=== PATIENT | female | born 1980 | race Caucasian/White ===

== ENCOUNTER 2021-03-26 17:52 | Emergency (ER) | payer MEDICAID ==
[~2021-03-26] VITALS: Ht 160 cm; Wt 63.6 kg
[~2021-03-26 17:52] MED LIST: ONDA4TAB6 PO
[2021-03-26 18:13] VITALS: BP 131/90
== END 2021-03-26 19:12 | disposition left against medical advice (07) ==
LOC: ER 17:53
DX: R06.02 Shortness of breath (principal); Z53.21 Procedure and treatment not carried out due to patient leaving prior to being seen by health care provider

== ENCOUNTER 2021-07-30 11:36 | Emergency (ER) | payer MEDICAID ==
--- NOTE | 2021-07-30 12:15 | NUR ---
Not in Rap waiting area.
--- NOTE | 2021-07-30 12:32 | NUR ---
Not in RAP waiting area.
--- NOTE | 2021-07-30 12:52 | NUR ---
Not in RAP waiting area.
== END 2021-07-30 13:30 | disposition left against medical advice (07) ==
LOC: ER 11:36
DX: F15.10 Other stimulant abuse, uncomplicated (principal); R50.9 Fever, unspecified; R56.9 Unspecified convulsions; Z88.5 Allergy status to narcotic agent; Z88.1 Allergy status to other antibiotic agents; Z88.8 Allergy status to other drugs, medicaments and biological substances; Z79.899 Other long term (current) drug therapy
CPT/HCPCS: 99283

== ENCOUNTER 2021-11-29 13:41 | Emergency (ER) | payer MEDICAID ==
[~2021-11-29] VITALS: Ht 162.6 cm; Wt 61.8 kg
[2021-11-29 13:49] VITALS: BP 114/84
== END 2021-11-29 18:51 | disposition left against medical advice (07) ==
LOC: ER 13:42
DX: N64.4 Mastodynia (principal); Z53.21 Procedure and treatment not carried out due to patient leaving prior to being seen by health care provider

== ENCOUNTER 2021-11-30 12:49 | Inpatient (IN) | payer MEDICAID ==
[~2021-11-30] VITALS: Ht 160 cm; Wt 61.0 kg
[2021-11-30] MEDS ORDERED: normal saline 1000ML IV soln IV ONE (14:55)
[2021-11-30] MEDS ORDERED: vancomycin/NS 1 GM ADD-VANTAGE 250 ML IV ONE (14:55)
[2021-11-30] MEDS ORDERED: ondansetron/PF 4mg/2ml inj IV ONE (14:55)
[2021-11-30] MEDS ORDERED: morphine 4 MG/ML inj SYRINge IV ONE (14:55)
[2021-11-30 15:21] LABS: BASOPHILS % (AUTO) 0.1 % (0-1); EOSINOPHILS # (AUTO) 0.1 X10'3 (0-0.9); EOSINOPHILS % (AUTO) 0.4 % (0-6); HEMATOCRIT 37.5 % (35.0-45.0); HEMOGLOBIN 11.8 g/dl (12.0-16.0); LYMPHOCYTES # (AUTO) 1.1 X10'3 (1.1-4.8); LYMPHOCYTES % (AUTO) 3.8 % (21-51); MEAN CORPUSCULAR HEMOGLOBIN 25.4 PG (27.0-31.0); MEAN CORPUSCULAR HGB CONC 31.4 g/dL (33.0-36.5); MEAN PLATELET VOLUME 8.2 FL (7.4-10.4); MONOCYTES # (AUTO) 2.1 X10'3 (0-0.9); MONOCYTES % (AUTO) 7.6 % (2-12); NEUTROPHILS # (AUTO) 24.7 X10'3 (1.8-7.7); NEUTROPHILS % (AUTO) 88.1 % (42-75); PLATELET COUNT 509 X10'3 (140-440); RED BLOOD COUNT 4.63 X10'6 (4.20-5.60); RED CELL DISTRIBUTION WIDTH 17.1 % (11.5-14.5)
[2021-11-30 15:24] LABS: WHITE BLOOD COUNT 28.1 X10'3 (4.5-11.0)
[2021-11-30 15:37] LABS: ALANINE AMINOTRANSFERASE 79 U/L (12-78); ALBUMIN/GLOBULIN RATIO 0.5 (1.1-1.5); ALKALINE PHOSPHATASE 195 IU/L (46-116); ANION GAP 8 (8-16); ASPARTATE AMINO TRANSFERASE 40 U/L (10-37); BILIRUBIN,TOTAL 0.4 MG/DL (0.1-1.0); BLOOD UREA NITROGEN 20 MG/DL (7-18); BUN/CREATININE RATIO 16.9 (6.6-38.0); CALCIUM 10.2 MG/DL (8.5-10.1); CHLORIDE 98 MMOL/L (99-107); CREATININE 1.18 MG/DL (0.40-0.90); GLUCOSE 101 MG/DL (70-104); SODIUM 138 MMOL/L (135-145); TOTAL CARBON DIOXIDE 32.3 MMOL/L (24-32); TOTAL PROTEIN 8.5 G/DL (6.4-8.2); eGFR 51 ML/MIN
--- NOTE | 2021-11-30 15:39 | NUR ---
NO EKG AT THIS TIME, PER PA MATA.
[2021-11-30 15:50] LABS: TOTAL CELLS COUNTED 100
[2021-11-30 15:51] LABS: PLATELET ESTIMATE INCREASED
[2021-11-30 15:52] LABS: ANISOCYTOSIS 1+; HYPOCHROMASIA 1+
--- NOTE | 2021-11-30 16:04 | NUR ---
RELIEVING RN FOR BREAK, 1ST LITER NS INFUSING W/O, PT IS BACK FROM CT
[2021-11-30] MEDS ORDERED: potassium Cl 20 mEq SR tablet PO STA (16:15)
[2021-11-30] MEDS ORDERED: LORazepam 2 mg/ml vial IV ONE (16:30)
[2021-11-30] MEDS ORDERED: ketorolac tromethamine 15mg/ml inj. IV ONE (16:30)
[2021-11-30 18:47] LABS: CLARITY,URINE SLIGHTLY CLOUDY (Clear); GLUCOSE, URINE NEGATIVE (Neg); KETONES,URINE TRACE mg/dl (Neg); LEUKOCYTE ESTERASE ,URINE NEGATIVE (Neg); NITRITES, URINE NEGATIVE (Neg); OCCULT BLOOD,URINE NEGATIVE (Neg); PROTEIN,URINE 100 mg/dl (Neg)
[2021-11-30 18:52] LABS: COLOR,URINE DARK YELLOW (Yellow); UA COLLECTION TYPE CLN CATCH MIDSTREAM
[2021-11-30 19:08] LABS: BACTERIA,URINE 1+ /HPF (Neg); SQUAMOUS EPITHELIAL CELL,UR FEW /LPF (FEW); WBC,URINE 0-4 /HPF (0-4)
[2021-11-30 19:09] LABS: HYALINE CASTS 0-3 /LPF (NEGATIVE)
[2021-11-30 19:11] LABS: RBC,URINE 20-50 /HPF (0-2)
[2021-11-30] MEDS ORDERED: magnesium Cl slow-release 64mg tablet PO PRN (20:00)
[2021-11-30] MEDS ORDERED: acetaminophen 325mg tablet PO PRN (20:00)
[2021-11-30] MEDS ORDERED: magnesium 4gm in 100ml NS 100 ML IV PRN (20:00)
[2021-11-30] MEDS ORDERED: ondansetron 4mg rapidly disintigrating tab PO PRN (20:00)
[2021-11-30] MEDS ORDERED: diphenhydrAMINE 50 mg/ml inj IV PRN (20:00)
[2021-11-30] MEDS: docusate sod 100mg capsule PO SCH (20:00)
[2021-11-30] MEDS ORDERED: bisacodyl 10mg suppository rectal RC PRN (20:00)
[2021-11-30] MEDS: K and/or MAG REPLACEMENT MC SCH (20:00)
[2021-11-30] MEDS ORDERED: mag hydrox/Alum hydrox/simeth 30ml oral suspension PO PRN (20:00)
[2021-11-30] MEDS ORDERED: acetaminophen 650mg rectal suppository RC PRN (20:00)
[2021-11-30] MEDS ORDERED: magnesium 2GM in 50ml NS 50 ML IV PRN (20:00)
[2021-11-30] MEDS ORDERED: POTASSIUM BICARB 20meq eff tab 20 MEQ TABLET.EFF PO PRN ×2 (20:00)
[2021-11-30] MEDS ORDERED: potassium CL 10mEq/100ml bag 100 ML IV PRN (20:00)
[2021-11-30] MEDS ORDERED: magnesium hydroxide 30ml (MOM) UD suspension PO PRN (20:00)
[2021-11-30] MEDS: vancomycin/NS 1 GM ADD-VANTAGE 250 ML IV SCH (20:50)
[2021-11-30] MEDS: potassium Cl 20mEq in NS 1,000 ML IV SCH (20:50)
[2021-11-30] MEDS: ondansetron/PF 4mg/2ml inj IV PRN (20:51)
[2021-11-30 20:58] LABS: HEMOGLOBIN A1C 6.1 % (4.5-6.2)
[2021-11-30 20:59] LABS: URINE AMPHETAMINE SCREEN POSITIVE (Neg); URINE BARBITUATE SCREEN NEGATIVE (Neg); URINE BENZODIAZEPINES SCREEN NEGATIVE (Neg); URINE CANNABINOID SCREEN POSITIVE (Neg); URINE COCAINE SCREEN NEGATIVE (Neg); URINE METHADONE SCREEN NEGATIVE (Neg); URINE OPIATE SCREEN POSITIVE (Neg); URINE PHENCYCLIDINE SCREEN NEGATIVE (Neg)
--- NOTE | 2021-11-30 21:00 | NUR ---
Maria Del Carmen CALHOUN at bedside talking with patient.
[2021-11-30 21:11] LABS: APTT 32 SECONDS (22-32); CREATINE KINASE 24 U/L (26-192); MAGNESIUM 1.5 MG/DL (1.5-2.4); PHOSPHORUS 3.6 MG/DL (2.3-4.5); POTASSIUM 3.8 MMOL/L (3.5-5.1)
[2021-11-30] MEDS: HYDROmorphone inj. 0.5 MG/0.5 ML DISP.SYRIN IV PRN (21:14)
[2021-12-01] MEDS: piperacillin/tazo 4.5gm/100ml 100 ML IV SCH ×3 (00:26→16:17)
[2021-12-01 01:44] LABS: BASOPHILS # (AUTO) 0.1 X10'3 (0-0.2); BASOPHILS % (AUTO) 0.2 % (0-1); EOSINOPHILS # (AUTO) 0.1 X10'3 (0-0.9); EOSINOPHILS % (AUTO) 0.3 % (0-6); HEMATOCRIT 31.9 % (35.0-45.0); HEMOGLOBIN 10.1 g/dl (12.0-16.0); LYMPHOCYTES # (AUTO) 1.1 X10'3 (1.1-4.8); LYMPHOCYTES % (AUTO) 3.9 % (21-51); MEAN CORPUSCULAR HEMOGLOBIN 25.9 PG (27.0-31.0); MEAN CORPUSCULAR HGB CONC 31.7 g/dL (33.0-36.5); MEAN CORPUSCULAR VOLUME 81.6 FL (78-98); MEAN PLATELET VOLUME 8.2 FL (7.4-10.4); MONOCYTES # (AUTO) 2.2 X10'3 (0-0.9); NEUTROPHILS % (AUTO) 87.6 % (42-75); PLATELET COUNT 402 X10'3 (140-440); RED BLOOD COUNT 3.91 X10'6 (4.20-5.60); RED CELL DISTRIBUTION WIDTH 17.4 % (11.5-14.5)
[2021-12-01 01:55] LABS: ALANINE AMINOTRANSFERASE 61 U/L (12-78); ALBUMIN/GLOBULIN RATIO 0.5 (1.1-1.5); ALKALINE PHOSPHATASE 201 IU/L (46-116); ANION GAP 8 (8-16); ASPARTATE AMINO TRANSFERASE 28 U/L (10-37); BILIRUBIN,TOTAL 0.4 MG/DL (0.1-1.0); BLOOD UREA NITROGEN 11 MG/DL (7-18); BUN/CREATININE RATIO 13.6 (6.6-38.0); CALCIUM 8.2 MG/DL (8.5-10.1); CHLORIDE 104 MMOL/L (99-107); CREATININE 0.81 MG/DL (0.40-0.90); GLUCOSE 104 MG/DL (70-104); MAGNESIUM 1.2 MG/DL (1.5-2.4); POTASSIUM 4.3 MMOL/L (3.5-5.1); SODIUM 135 MMOL/L (135-145); TOTAL CARBON DIOXIDE 23.3 MMOL/L (24-32); TOTAL PROTEIN 6.2 G/DL (6.4-8.2); WHITE BLOOD COUNT 27.4 X10'3 (4.5-11.0); eGFR 78 ML/MIN
[2021-12-01] MEDS ORDERED: TETanus/Pertussis (Acell)/Diphther VAC/PF (Tdap-Adult) 0.5ml syringe IMVAC ONE (02:30)
[2021-12-01] MEDS: HYDROmorphone inj. 0.5 MG/0.5 ML DISP.SYRIN IV PRN ×2 (04:36→20:20)
[2021-12-01] MEDS: potassium Cl 20mEq in NS 1,000 ML IV SCH (06:59)
--- NOTE | 2021-12-01 07:32 | NUR ---
primary nurse went to [facility] with other patient ,newswriter is covering for the pt untill primary nurse comes back.
[2021-12-01] MEDS: docusate sod 100mg capsule PO SCH ×2 (08:00→20:13)
[2021-12-01] MEDS: K and/or MAG REPLACEMENT MC SCH ×2 (08:00→20:00)
[2021-12-01] MEDS: vancomycin/NS 1 GM ADD-VANTAGE 250 ML IV SCH ×2 (08:34→20:43)
--- NOTE | 2021-12-01 11:13 | NUR ---
Spoke with yandel regarding patient NPO diet order. OR does not have her on the surgery list, patient to recieve regular diet per Dr Zaidi.
[2021-12-01] MEDS: ondansetron/PF 4mg/2ml inj IV PRN (11:20)
[2021-12-01] MEDS: ketorolac trometh. 30mg/ml inj. IV PRN (11:20)
--- NOTE | 2021-12-01 16:06 | NUR ---
spoke to dr humphries in person and informed the md that pt is reciving iv potassium 20 meq with n.s in 1l and pt am k+ was 4.3 .is it okay to d/c the drip. dr humphries agrees to d/c the iv drip.
--- NOTE | 2021-12-01 18:50 | NUR ---
Patient in room ORTHO 4006. I have received report from Heather LANGE (ER) and had the opportunity to ask questions and assume patient care. Addendum: 12/01/21 at 1908 by Liz Stevens RN Amended: Links added.
[2021-12-01 19:15] VITALS: BP 150/97
[2021-12-01 22:00] VITALS: BP 152/92
[2021-12-02] MEDS: piperacillin/tazo 4.5gm/100ml 100 ML IV SCH ×4 (00:01→23:33)
[2021-12-02] MEDS: ketorolac trometh. 30mg/ml inj. IV PRN ×3 (00:01→16:58)
[2021-12-02] MEDS: HYDROmorphone inj. 0.5 MG/0.5 ML DISP.SYRIN IV PRN ×4 (04:22→21:54)
[2021-12-02 06:00] VITALS: BP 117/85
--- NOTE | 2021-12-02 06:20 | NUR ---
Problems reprioritized. Patient report given, questions answered & plan of care reviewed with Lorena LANGE. Addendum: 12/02/21 at 0655 by Liz Stevens RN Amended: Links added.
--- NOTE | 2021-12-02 06:52 | NUR ---
Patient in room ORTHO 4023. I have received report from Liz LANGE and had the opportunity to ask questions and assume patient care.
[2021-12-02] MEDS ORDERED: VANCOMYCIN LEVEL IV ONE (07:30)
[2021-12-02] MEDS: K and/or MAG REPLACEMENT MC SCH ×2 (07:41→20:00)
[2021-12-02 08:21] LABS: BASOPHILS # (AUTO) 0.1 X10'3 (0-0.2); BASOPHILS % (AUTO) 0.4 % (0-1); EOSINOPHILS # (AUTO) 0.3 X10'3 (0-0.9); HEMATOCRIT 30.2 % (35.0-45.0); HEMOGLOBIN 9.6 g/dl (12.0-16.0); LYMPHOCYTES # (AUTO) 1.4 X10'3 (1.1-4.8); LYMPHOCYTES % (AUTO) 5.8 % (21-51); MEAN CORPUSCULAR HEMOGLOBIN 25.9 PG (27.0-31.0); MEAN CORPUSCULAR HGB CONC 31.8 g/dL (33.0-36.5); MEAN CORPUSCULAR VOLUME 81.5 FL (78-98); MEAN PLATELET VOLUME 7.9 FL (7.4-10.4); MONOCYTES # (AUTO) 1.7 X10'3 (0-0.9); MONOCYTES % (AUTO) 6.6 % (2-12); NEUTROPHILS # (AUTO) 21.7 X10'3 (1.8-7.7); NEUTROPHILS % (AUTO) 86.2 % (42-75); PLATELET COUNT 449 X10'3 (140-440); RED BLOOD COUNT 3.71 X10'6 (4.20-5.60); RED CELL DISTRIBUTION WIDTH 17.8 % (11.5-14.5)
[2021-12-02 08:35] LABS: ALANINE AMINOTRANSFERASE 70 U/L (12-78); ALBUMIN 1.8 G/DL (3.4-5.0); ALBUMIN/GLOBULIN RATIO 0.4 (1.1-1.5); ALKALINE PHOSPHATASE 204 IU/L (46-116); ANION GAP 9 (8-16); ASPARTATE AMINO TRANSFERASE 36 U/L (10-37); BILIRUBIN,TOTAL 0.2 MG/DL (0.1-1.0); BLOOD UREA NITROGEN 14 MG/DL (7-18); BUN/CREATININE RATIO 19.2 (6.6-38.0); CALCIUM 8.4 MG/DL (8.5-10.1); CHLORIDE 102 MMOL/L (99-107); CREATININE 0.73 MG/DL (0.40-0.90); GLUCOSE 95 MG/DL (70-104); MAGNESIUM 1.6 MG/DL (1.5-2.4); POTASSIUM 3.8 MMOL/L (3.5-5.1); SODIUM 138 MMOL/L (135-145); TOTAL CARBON DIOXIDE 27.4 MMOL/L (24-32); VANCOMYCIN,TROUGH 7.1 UG/ML (6.0-14.0); eGFR 88 ML/MIN
[2021-12-02 08:37] LABS: WHITE BLOOD COUNT 25.2 X10'3 (4.5-11.0)
[2021-12-02] MEDS: vancomycin/NS 1 GM ADD-VANTAGE 250 ML IV SCH (08:46)
[2021-12-02] MEDS: docusate sod 100mg capsule PO SCH ×2 (08:46→20:00)
[2021-12-02 09:17] LABS: TOTAL CELLS COUNTED 100
[2021-12-02 09:18] LABS: ANISOCYTOSIS 1+; PLATELET ESTIMATE INCREASED
[2021-12-02 10:00] VITALS: BP 136/99
[2021-12-02 14:00] VITALS: BP 137/88
[2021-12-02 18:00] VITALS: BP 137/99
--- NOTE | 2021-12-02 18:15 | NUR ---
Patient in room ORTHO 4011. I have received report from Indy LANGE and had the opportunity to ask questions and assume patient care. Addendum: 12/02/21 at 1940 by Liz Stevens RN Amended: Links added.
[2021-12-02] MEDS: VANCOmycin 1250MG/NS 250ml Bag 250 ML IV SCH (21:48)
[2021-12-03] MEDS: temazepam 15mg capsule PO PRN ×2 (01:27→22:09)
[2021-12-03] MEDS: ketorolac trometh. 30mg/ml inj. IV PRN ×3 (01:27→20:06)
--- NOTE | 2021-12-03 05:00 | NUR ---
Pt. afebrile this shift. Changed pt's drsg to left breast abscess due to soilage (purulant drainage noted to drsg)- pt. medicated for pain this shift. Bed in low position and call light within reach. Addendum: 12/03/21 at 0710 by Liz Stevens RN Amended: Links added.
[2021-12-03 05:30] VITALS: BP 152/97
--- NOTE | 2021-12-03 06:50 | NUR ---
jose reprioritized. Patient report given, questions answered & plan of care reviewed with Beti LANGE. Addendum: 12/03/21 at 0706 by Liz Stevens RN Amended: Links added.
--- NOTE | 2021-12-03 07:10 | NUR ---
Patient in room ORTHO 4023. I have received report from ANISA Hill and had the opportunity to ask questions and assume patient care.
[2021-12-03 07:16] LABS: ALANINE AMINOTRANSFERASE 50 U/L (12-78); ALBUMIN 1.7 G/DL (3.4-5.0); ALBUMIN/GLOBULIN RATIO 0.4 (1.1-1.5); ALKALINE PHOSPHATASE 201 IU/L (46-116); ANION GAP 7 (8-16); ASPARTATE AMINO TRANSFERASE 18 U/L (10-37); BILIRUBIN,TOTAL 0.2 MG/DL (0.1-1.0); BLOOD UREA NITROGEN 15 MG/DL (7-18); CALCIUM 8.4 MG/DL (8.5-10.1); CHLORIDE 104 MMOL/L (99-107); CREATININE 0.79 MG/DL (0.40-0.90); GLUCOSE 84 MG/DL (70-104); MAGNESIUM 1.8 MG/DL (1.5-2.4); POTASSIUM 4.3 MMOL/L (3.5-5.1); SODIUM 139 MMOL/L (135-145); TOTAL CARBON DIOXIDE 28.2 MMOL/L (24-32); TOTAL PROTEIN 5.6 G/DL (6.4-8.2); eGFR 81 ML/MIN
[2021-12-03] MEDS: HYDROmorphone inj. 0.5 MG/0.5 ML DISP.SYRIN IV PRN (07:19)
[2021-12-03 07:29] LABS: BASOPHILS # (AUTO) 0.1 X10'3 (0-0.2); BASOPHILS % (AUTO) 0.5 % (0-1); EOSINOPHILS # (AUTO) 0.4 X10'3 (0-0.9); EOSINOPHILS % (AUTO) 2.6 % (0-6); HEMATOCRIT 30.5 % (35.0-45.0); HEMOGLOBIN 9.8 g/dl (12.0-16.0); LYMPHOCYTES # (AUTO) 1.6 X10'3 (1.1-4.8); LYMPHOCYTES % (AUTO) 10.6 % (21-51); MEAN CORPUSCULAR HEMOGLOBIN 26.2 PG (27.0-31.0); MEAN CORPUSCULAR HGB CONC 32.1 g/dL (33.0-36.5); MEAN CORPUSCULAR VOLUME 81.5 FL (78-98); MEAN PLATELET VOLUME 8.4 FL (7.4-10.4); MONOCYTES % (AUTO) 6.4 % (2-12); NEUTROPHILS # (AUTO) 12.2 X10'3 (1.8-7.7); NEUTROPHILS % (AUTO) 79.9 % (42-75); PLATELET COUNT 500 X10'3 (140-440); RED BLOOD COUNT 3.74 X10'6 (4.20-5.60); RED CELL DISTRIBUTION WIDTH 17.7 % (11.5-14.5); WHITE BLOOD COUNT 15.3 X10'3 (4.5-11.0)
[2021-12-03] MEDS: docusate sod 100mg capsule PO SCH ×3 (08:00→20:08)
[2021-12-03] MEDS: K and/or MAG REPLACEMENT MC SCH ×2 (08:00→20:00)
[2021-12-03] MEDS: VANCOmycin 1250MG/NS 250ml Bag 250 ML IV SCH ×2 (08:55→21:52)
[2021-12-03 09:31] LABS: TOTAL CELLS COUNTED 100
[2021-12-03 09:34] LABS: ANISOCYTOSIS 1+; HYPOCHROMASIA 1+; PLATELET ESTIMATE INCREASED
[2021-12-03 09:35] LABS: ACANTHOCYTES FEW; BURR CELLS FEW; TARGET CELLS FEW; TEAR DROP CELLS FEW
[2021-12-03 10:00] VITALS: BP 138/100
[2021-12-03] MEDS: piperacillin/tazo 4.5gm/100ml 100 ML IV SCH ×2 (11:16→16:24)
[2021-12-03] MEDS: HYDROmorphone 1 mg/ml syringe IV PRN ×3 (12:08→22:09)
--- NOTE | 2021-12-03 18:00 | NUR ---
pt in the shower unable to get vitals at the time. Addendum: 12/04/21 at 0126 by Jenna Lopez RN Amended: Links added.
--- NOTE | 2021-12-03 18:50 | NUR ---
Problems reprioritized. Patient report given, questions answered & plan of care reviewed with ANISA West.
--- NOTE | 2021-12-03 18:57 | NUR ---
Patient in room ORTHO 4023. I have received report from ANIAS VILLAGRAN and had the opportunity to ask questions and assume patient care. Addendum: 12/03/21 at 1857 by Jenna Lopez RN Amended: Links added.
[2021-12-03 22:00] VITALS: BP 143/92
--- NOTE | 2021-12-03 22:20 | NUR ---
pt left breast under axilla with large white absess and one open and draining pussy white matter and dressing saturated and removed and redressed with telfa dressings x2 and 4x4 guaze and abd pad over it. held in place with paper tape and stockinette dressing. pt claims she had a premie baby who is at [facility]. said it's with current boyfriend and that this is baby number 5 and had 4 others with another man who is . said her Mom is currently trying to get those kids.
[2021-12-04] MEDS: piperacillin/tazo 4.5gm/100ml 100 ML IV SCH ×3 (00:41→23:53)
--- NOTE | 2021-12-04 01:23 | NUR ---
pt awokle itching feet and c/o it. medicated with iv benadryl 25mg for this.
[2021-12-04 02:09] VITALS: BP 120/84
[2021-12-04] MEDS: HYDROmorphone 1 mg/ml syringe IV PRN ×5 (03:28→23:53)
--- NOTE | 2021-12-04 03:32 | NUR ---
awokle complaint of pain medicated with iv diladid for this
[2021-12-04] MEDS: ketorolac trometh. 30mg/ml inj. IV PRN ×2 (05:16→22:12)
--- NOTE | 2021-12-04 05:18 | NUR ---
medicated for oscar to left breat and then up to brp toradol given for the pain
--- NOTE | 2021-12-04 05:58 | NUR ---
Problems reprioritized. Patient report given, questions answered & plan of care reviewed with ANISA CANSECO. Addendum: 12/04/21 at 0558 by Jenna Lopez RN Amended: Links added.
--- NOTE | 2021-12-04 06:10 | NUR ---
Patient in room ORTHO 4023. I have received report from Jenna LANGE and had the opportunity to ask questions and assume patient care.
[2021-12-04 06:59] VITALS: BP 134/84
[2021-12-04] MEDS: VANCOmycin 1250MG/NS 250ml Bag 250 ML IV SCH ×2 (07:26→20:02)
[2021-12-04] MEDS ORDERED: VANCOMYCIN LEVEL IV ONE ×2 (07:30→19:30)
[2021-12-04 07:49] LABS: BASOPHILS # (AUTO) 0.1 X10'3 (0-0.2); BASOPHILS % (AUTO) 0.8 % (0-1); EOSINOPHILS # (AUTO) 0.6 X10'3 (0-0.9); EOSINOPHILS % (AUTO) 4.6 % (0-6); HEMATOCRIT 33.1 % (35.0-45.0); HEMOGLOBIN 10.4 g/dl (12.0-16.0); LYMPHOCYTES % (AUTO) 16.4 % (21-51); MEAN CORPUSCULAR HEMOGLOBIN 25.2 PG (27.0-31.0); MEAN CORPUSCULAR HGB CONC 31.4 g/dL (33.0-36.5); MEAN CORPUSCULAR VOLUME 80.5 FL (78-98); MEAN PLATELET VOLUME 7.7 FL (7.4-10.4); MONOCYTES # (AUTO) 1.1 X10'3 (0-0.9); MONOCYTES % (AUTO) 9.1 % (2-12); NEUTROPHILS # (AUTO) 8.6 X10'3 (1.8-7.7); NEUTROPHILS % (AUTO) 69.1 % (42-75); PLATELET COUNT 567 X10'3 (140-440); RED BLOOD COUNT 4.11 X10'6 (4.20-5.60); WHITE BLOOD COUNT 12.4 X10'3 (4.5-11.0)
[2021-12-04 08:09] LABS: ALANINE AMINOTRANSFERASE 42 U/L (12-78); ALBUMIN 1.9 G/DL (3.4-5.0); ALBUMIN/GLOBULIN RATIO 0.5 (1.1-1.5); ALKALINE PHOSPHATASE 151 IU/L (46-116); ANION GAP 5 (8-16); ASPARTATE AMINO TRANSFERASE 12 U/L (10-37); BILIRUBIN,TOTAL 0.2 MG/DL (0.1-1.0); BLOOD UREA NITROGEN 15 MG/DL (7-18); BUN/CREATININE RATIO 17.4 (6.6-38.0); CALCIUM 8.5 MG/DL (8.5-10.1); CHLORIDE 105 MMOL/L (99-107); CREATININE 0.86 MG/DL (0.40-0.90); GLUCOSE 93 MG/DL (70-104); MAGNESIUM 1.8 MG/DL (1.5-2.4); POTASSIUM 4.7 MMOL/L (3.5-5.1); SODIUM 138 MMOL/L (135-145); TOTAL CARBON DIOXIDE 28.2 MMOL/L (24-32); eGFR 73 ML/MIN
--- NOTE | 2021-12-04 08:15 | NUR ---
vanco trough 31.3 reported to pharmacy.
[2021-12-04 08:59] LABS: ANISOCYTOSIS 1+; HYPOCHROMASIA 1+; PLATELET ESTIMATE INCREASED; TARGET CELLS FEW; TOTAL CELLS COUNTED 100
[2021-12-04 09:00] LABS: LARGE PLATELETS FEW
[2021-12-04] MEDS: docusate sod 100mg capsule PO SCH ×2 (09:00→20:00)
[2021-12-04] MEDS: K and/or MAG REPLACEMENT MC SCH ×2 (09:00→20:00)
[2021-12-04 10:00] VITALS: BP 143/93
--- NOTE | 2021-12-04 12:15 | NUR ---
WOC RN here assessing wound and changing dressing. Wound with purulent drainage
--- NOTE | 2021-12-04 13:00 | NUR ---
PICC RN here. DC'd Rt antecubital and left wrist IV's. Placed extended cath to Rt upper arm.
[2021-12-04 15:08] VITALS: BP 136/84
--- NOTE | 2021-12-04 17:20 | NUR ---
Out in [place] asking for pain meds. States is hungry and anxious to get surgery over with.
--- NOTE | 2021-12-04 17:30 | NUR ---
returned to room to let pt know pain meds are not due yet. Found pt sleeping in bed.
[2021-12-04 18:20] VITALS: BP 150/92
--- NOTE | 2021-12-04 18:20 | NUR ---
Problems reprioritized. Patient report given, questions answered & plan of care reviewed with Naima LANGE.
[2021-12-04 22:00] VITALS: BP 140/70
[2021-12-05] VITALS (14 sets, daily range): BP systolic 136–184; BP diastolic 78–142
[2021-12-05] MEDS: piperacillin/tazo 4.5gm/100ml 100 ML IV SCH ×3 (00:44→16:55)
[2021-12-05] MEDS: HYDROmorphone 1 mg/ml syringe IV PRN ×3 (04:54→20:36)
[2021-12-05 05:50] LABS: BASOPHILS # (AUTO) 0.1 X10'3 (0-0.2); BASOPHILS % (AUTO) 0.8 % (0-1); EOSINOPHILS # (AUTO) 0.6 X10'3 (0-0.9); EOSINOPHILS % (AUTO) 4.3 % (0-6); HEMOGLOBIN 11.5 g/dl (12.0-16.0); LYMPHOCYTES # (AUTO) 2.7 X10'3 (1.1-4.8); LYMPHOCYTES % (AUTO) 18.6 % (21-51); MEAN CORPUSCULAR HEMOGLOBIN 25.8 PG (27.0-31.0); MEAN CORPUSCULAR HGB CONC 31.1 g/dL (33.0-36.5); MEAN PLATELET VOLUME 7.3 FL (7.4-10.4); MONOCYTES # (AUTO) 1.1 X10'3 (0-0.9); MONOCYTES % (AUTO) 7.6 % (2-12); NEUTROPHILS % (AUTO) 68.7 % (42-75); PLATELET COUNT 564 X10'3 (140-440); RED BLOOD COUNT 4.46 X10'6 (4.20-5.60); RED CELL DISTRIBUTION WIDTH 18.3 % (11.5-14.5); WHITE BLOOD COUNT 14.6 X10'3 (4.5-11.0)
[2021-12-05 06:06] LABS: ALANINE AMINOTRANSFERASE 37 U/L (12-78); ALBUMIN 2.3 G/DL (3.4-5.0); ALBUMIN/GLOBULIN RATIO 0.5 (1.1-1.5); ALKALINE PHOSPHATASE 157 IU/L (46-116); ANION GAP 10 (8-16); ASPARTATE AMINO TRANSFERASE 14 U/L (10-37); BILIRUBIN,TOTAL 0.2 MG/DL (0.1-1.0); BLOOD UREA NITROGEN 17 MG/DL (7-18); BUN/CREATININE RATIO 14.9 (6.6-38.0); CALCIUM 9.2 MG/DL (8.5-10.1); CHLORIDE 100 MMOL/L (99-107); CREATININE 1.14 MG/DL (0.40-0.90); GLUCOSE 87 MG/DL (70-104); POTASSIUM 4.7 MMOL/L (3.5-5.1); SODIUM 137 MMOL/L (135-145); TOTAL CARBON DIOXIDE 26.6 MMOL/L (24-32); TOTAL PROTEIN 6.9 G/DL (6.4-8.2); eGFR 53 ML/MIN
[2021-12-05 06:33] LABS: ANISOCYTOSIS 2+; PLATELET ESTIMATE INCREASED; TOTAL CELLS COUNTED 100
[2021-12-05] MEDS: K and/or MAG REPLACEMENT MC SCH ×2 (08:00→20:00)
[2021-12-05] MEDS: docusate sod 100mg capsule PO SCH ×2 (08:27→20:00)
[2021-12-05] MEDS: ketorolac trometh. 30mg/ml inj. IV PRN ×2 (08:27→15:16)
--- NOTE | 2021-12-05 09:01 | NUR ---
Initial: Pt admitted w/ L breast cellulitis, sepsis, hypokalemia and is noted to be ~4months per EMR. Pt is planned to go for I&D of chest abscess per MD note. Currently NPO for OR though previously on Regular diet w/ 100% intake of meals meeting needs. LBM 12/02 receiving routine colace. No nutrition intervention implemented at this time, will continue to monitor. Recs: 1. Continue Regular diet as tolerated 2. Bowel care per rx 3. Scaled wts this admit Addendum: 12/05/21 at [address] Amended: Links added.
[2021-12-05] MEDS: VANCOmycin 1250MG/NS 250ml Bag 250 ML IV SCH ×2 (10:21→20:36)
--- NOTE | 2021-12-05 10:45 | NUR ---
Patient asked me if she can go for a walk, I told her that she can but just around the 4th floor. I reminded her about the hospital policy of no smoking within the hospital and that the moment she leave the building that would be considered against medical advice and that it is not safe to do so. She said she won't leave. Reminded patient about NPO status as she is expected to have surgery today.
--- NOTE | 2021-12-05 12:01 | NUR ---
Met with patient in regards to substance use and to see if patient was interested in resources for treatment options. Patient would like resources for both inpatient and outpatient rehab. I gave patient a list of resources and my card to call me with any questions.
[2021-12-05] MEDS ORDERED: bacitracin 15gm ointment TP ONE (12:04)
--- NOTE | 2021-12-05 13:35 | NUR ---
Report given to Recovery Room Nurse. Endorsed to the nurse to make sure we get the breast wound culture done in the OR as it is not done yet.
[2021-12-05] MEDS ORDERED: morphine 2 MG/ML inj. syringe IV PRN (14:10)
[2021-12-05] MEDS ORDERED: hydrALAZINE 20mg/ml inj. IV PRN (14:10)
[2021-12-05] MEDS ORDERED: ondansetron/PF 4mg/2ml inj IV PRN (14:10)
[2021-12-05] MEDS ORDERED: labetalol 20mg/4ml (5mg/ml) syringe IV PRN (14:10)
[2021-12-05] MEDS ORDERED: ringers solution, lacted 1,000 ML IV SCH (14:10)
[2021-12-05] MEDS ORDERED: fentaNYL/PF 50MCG/1 ML 2ML syringe IV PRN (14:10)
[2021-12-05] MEDS ORDERED: dexamethasone sod phosphate 10mg/ml inj ONE (14:12)
[2021-12-05] MEDS ORDERED: sevoflurane 250ml liquid IH ONE (14:12)
[2021-12-05] MEDS ORDERED: LIDOcaine 1% (10mg/ml)w/preservative inj. 20ml MDV ONE (14:12)
[2021-12-05] MEDS ORDERED: fentaNYL/PF 50MCG/1 ML 2ML syringe ONE (14:31)
[2021-12-05] MEDS ORDERED: ondansetron/PF 4mg/2ml inj ONE (14:33)
[2021-12-05] MEDS ORDERED: propofol inj 20 ML IV ONE (14:34)
[2021-12-05] MEDS: morphine 4 MG/ML inj SYRINge IV PRN ×2 (15:25→15:47)
[2021-12-05] MEDS: fentaNYL/PF 50MCG/1 ML 2ML syringe IV PRN ×2 (15:35→15:43)
[2021-12-05] MEDS: acetaminophen 1,000mg/100ml IV 100 ML IV SCH (16:05)
--- NOTE | 2021-12-05 16:12 | NUR ---
Still in the OR at this time
[2021-12-05] MEDS ORDERED: HYDROmorphone inj. 0.5 MG/0.5 ML DISP.SYRIN ONE (16:14)
[2021-12-05] MEDS ORDERED: HYDROmorphone/PF 0.2 MG/ML SYRINGE IV PRN ×2 (16:15)
--- NOTE | 2021-12-05 16:33 | NUR ---
PATIENT HAS MET ALL CRITERIA FOR TRANSFER TO THE ORTHO FLOOR. VSS. DRESSINGS INTACT. BED LOW, CALL LIGHT PRESENT AND 2 RAILS UP. RN PRESENT TO ACCEPT CARE OF PATIENT AND REPORT HAS BEEN CALLED. ALL QUESTIONS ANSWERED TO ACCEPTING RN. Addendum: 12/05/21 at 1643 by Parviz Styles RN Amended: Links added.
[2021-12-05] MEDS: temazepam 15mg capsule PO PRN (22:56)
[2021-12-06] MEDS: HYDROmorphone 1 mg/ml syringe IV PRN ×5 (01:01→21:44)
[2021-12-06] MEDS: piperacillin/tazo 4.5gm/100ml 100 ML IV SCH ×3 (01:10→17:33)
[2021-12-06 02:00] VITALS: BP 140/88
[2021-12-06 07:00] VITALS: BP 118/80
[2021-12-06] MEDS: K and/or MAG REPLACEMENT MC SCH ×2 (08:00→20:00)
[2021-12-06] MEDS: docusate sod 100mg capsule PO SCH ×2 (08:00→20:00)
[2021-12-06] MEDS: VANCOmycin 1250MG/NS 250ml Bag 250 ML IV SCH ×2 (08:24→21:44)
[2021-12-06 10:00] VITALS: BP 105/62
--- NOTE | 2021-12-06 15:30 | NUR ---
Spoke with Dr Coffman for post op wound orders which were obtained. Addendum: 12/07/21 at 1303 by Aleksandra Lucero RN Amended: Links added.
[2021-12-06] MEDS: acetaminophen 1,000mg/100ml IV 100 ML IV SCH (16:05)
--- NOTE | 2021-12-06 17:00 | NUR ---
PER PHARMACIST OK TO HANG 1600 ZOSYN AT 1730 FOUR HOURS APART FROM 1215 DOSE HUNG
[2021-12-06 18:00] VITALS: BP 139/86
--- NOTE | 2021-12-06 18:04 | NUR ---
Problems reprioritized. Patient report given, questions answered & plan of care reviewed with TARA LANGE.
[2021-12-06 22:00] VITALS: BP 141/90
[2021-12-07] MEDS: piperacillin/tazo 4.5gm/100ml 100 ML IV SCH ×3 (00:05→16:43)
[2021-12-07] MEDS: HYDROmorphone 1 mg/ml syringe IV PRN ×3 (02:25→11:21)
[2021-12-07] MEDS: diphenhydrAMINE 25mg capsule PO PRN ×2 (05:21→16:53)
[2021-12-07 05:57] VITALS: BP 151/83
--- NOTE | 2021-12-07 06:15 | NUR ---
Received report from Loli LANGE
[2021-12-07 06:35] LABS: BASOPHILS # (AUTO) 0.2 X10'3 (0-0.2); EOSINOPHILS # (AUTO) 0.5 X10'3 (0-0.9); EOSINOPHILS % (AUTO) 3.2 % (0-6); HEMATOCRIT 32.2 % (35.0-45.0); RED BLOOD COUNT 3.99 X10'6 (4.20-5.60)
[2021-12-07 06:39] LABS: BASOPHILS % (AUTO) 1.4 % (0-1); HEMOGLOBIN 10.6 g/dl (12.0-16.0); LYMPHOCYTES # (AUTO) 2.5 X10'3 (1.1-4.8); LYMPHOCYTES % (AUTO) 17.1 % (21-51); MEAN CORPUSCULAR HEMOGLOBIN 26.5 PG (27.0-31.0); MEAN CORPUSCULAR HGB CONC 32.9 g/dL (33.0-36.5); MEAN CORPUSCULAR VOLUME 80.6 FL (78-98); MEAN PLATELET VOLUME 7.2 FL (7.4-10.4); MONOCYTES # (AUTO) 1.2 X10'3 (0-0.9); MONOCYTES % (AUTO) 8.2 % (2-12); NEUTROPHILS # (AUTO) 10.2 X10'3 (1.8-7.7); NEUTROPHILS % (AUTO) 70.1 % (42-75); PLATELET COUNT 608 X10'3 (140-440); WHITE BLOOD COUNT 14.5 X10'3 (4.5-11.0)
[2021-12-07 07:04] LABS: ALANINE AMINOTRANSFERASE 30 U/L (12-78); ALBUMIN 2.6 G/DL (3.4-5.0); ALBUMIN/GLOBULIN RATIO 0.6 (1.1-1.5); ALKALINE PHOSPHATASE 128 IU/L (46-116); ANION GAP 7 (8-16); ASPARTATE AMINO TRANSFERASE 15 U/L (10-37); BILIRUBIN,TOTAL 0.2 MG/DL (0.1-1.0); BLOOD UREA NITROGEN 16 MG/DL (7-18); BUN/CREATININE RATIO 13.9 (6.6-38.0); CHLORIDE 102 MMOL/L (99-107); CREATININE 1.15 MG/DL (0.40-0.90); GLUCOSE 88 MG/DL (70-104); POTASSIUM 4.3 MMOL/L (3.5-5.1); SODIUM 138 MMOL/L (135-145); TOTAL CARBON DIOXIDE 28.9 MMOL/L (24-32); TOTAL PROTEIN 6.9 G/DL (6.4-8.2); eGFR 52 ML/MIN
[2021-12-07] MEDS: VANCOmycin 1250MG/NS 250ml Bag 250 ML IV SCH (07:24)
[2021-12-07] MEDS: K and/or MAG REPLACEMENT MC SCH ×2 (08:00→20:00)
[2021-12-07] MEDS: docusate sod 100mg capsule PO SCH ×2 (08:00→20:00)
[2021-12-07 08:11] LABS: ANISOCYTOSIS 1+; HYPOCHROMASIA 1+; PLATELET ESTIMATE INCREASED; TOTAL CELLS COUNTED 100
[2021-12-07 10:00] VITALS: BP 143/93
--- NOTE | 2021-12-07 12:07 | NUR ---
Patient in room ORTHO 4020. I have received report from ANISA Tomlin and had the opportunity to ask questions and assume patient care.
--- NOTE | 2021-12-07 13:00 | NUR ---
I have reviewed ANISA Tomlin physical assessment and am in agreement Addendum: 12/07/21 at 1905 by Loli Domínguez RN Amended: Links added.
[2021-12-07 14:00] VITALS: BP 131/96
[2021-12-07] MEDS: traMADol 50MG tablet PO PRN ×2 (15:49→22:28)
--- NOTE | 2021-12-07 17:10 | NUR ---
dressing changed per written orders
--- NOTE | 2021-12-07 18:52 | NUR ---
Problems reprioritized. Patient report given, questions answered & plan of care reviewed with BILLIE Alicia.
[2021-12-07 19:00] VITALS: BP_SYST 130; BP_SYST 147; BP_DIAS 80; BP_DIAS 96
[2021-12-07] MEDS: acetaminophen 325mg tablet PO PRN (20:53)
[2021-12-07 22:00] VITALS: BP 130/80
[2021-12-08 04:00] VITALS: BP 114/82
--- NOTE | 2021-12-08 04:20 | NUR ---
In agreement with physical assessment charted by Maral JIMENEZ
--- NOTE | 2021-12-08 06:44 | NUR ---
Patient in room ORTHO 4020. I have received report from Maral LANGE and had the opportunity to ask questions and assume patient care. Addendum: 12/08/21 at 0644 by Indy Colon RN Patient in room ORTHO 4020. I have received report from Maral WISE and had the opportunity to ask questions and assume patient care.
[2021-12-08] MEDS: traMADol 50MG tablet PO PRN ×3 (07:21→23:05)
[2021-12-08 07:22] LABS: BASOPHILS # (AUTO) 0.1 X10'3 (0-0.2); EOSINOPHILS # (AUTO) 0.5 X10'3 (0-0.9); EOSINOPHILS % (AUTO) 3.7 % (0-6); HEMATOCRIT 36.6 % (35.0-45.0); HEMOGLOBIN 11.9 g/dl (12.0-16.0); LYMPHOCYTES # (AUTO) 1.7 X10'3 (1.1-4.8); LYMPHOCYTES % (AUTO) 12.5 % (21-51); MEAN CORPUSCULAR HGB CONC 32.4 g/dL (33.0-36.5); MEAN CORPUSCULAR VOLUME 80.2 FL (78-98); MEAN PLATELET VOLUME 7.3 FL (7.4-10.4); MONOCYTES # (AUTO) 1.1 X10'3 (0-0.9); MONOCYTES % (AUTO) 8.3 % (2-12); NEUTROPHILS # (AUTO) 10.2 X10'3 (1.8-7.7); NEUTROPHILS % (AUTO) 74.5 % (42-75); PLATELET COUNT 688 X10'3 (140-440); RED BLOOD COUNT 4.56 X10'6 (4.20-5.60); WHITE BLOOD COUNT 13.6 X10'3 (4.5-11.0)
[2021-12-08] MEDS: K and/or MAG REPLACEMENT MC SCH ×2 (07:22→20:00)
[2021-12-08] MEDS: docusate sod 100mg capsule PO SCH ×2 (07:22→20:00)
[2021-12-08 07:54] LABS: ALANINE AMINOTRANSFERASE 26 U/L (12-78); ALBUMIN 2.7 G/DL (3.4-5.0); ALBUMIN/GLOBULIN RATIO 0.6 (1.1-1.5); ALKALINE PHOSPHATASE 134 IU/L (46-116); ANION GAP 7 (8-16); ASPARTATE AMINO TRANSFERASE 13 U/L (10-37); BILIRUBIN,TOTAL 0.2 MG/DL (0.1-1.0); BLOOD UREA NITROGEN 16 MG/DL (7-18); BUN/CREATININE RATIO 14.2 (6.6-38.0); CALCIUM 9.5 MG/DL (8.5-10.1); CHLORIDE 100 MMOL/L (99-107); CREATININE 1.13 MG/DL (0.40-0.90); GLUCOSE 89 MG/DL (70-104); POTASSIUM 4.7 MMOL/L (3.5-5.1); SODIUM 138 MMOL/L (135-145); TOTAL CARBON DIOXIDE 31.2 MMOL/L (24-32); TOTAL PROTEIN 7.6 G/DL (6.4-8.2); eGFR 53 ML/MIN
[2021-12-08] MEDS ORDERED: vancomycin/NS 1 GM ADD-VANTAGE 250 ML IV SCH (08:00)
[2021-12-08 08:04] LABS: ANISOCYTOSIS 1+; MICROCYTOSIS 1+; PLATELET ESTIMATE INCREASED; TOTAL CELLS COUNTED 100
[2021-12-08 10:00] VITALS: BP 136/81
[2021-12-08 18:30] VITALS: BP 132/87
--- NOTE | 2021-12-08 18:30 | NUR ---
Patient in room ORTHO 4020. I have received report from ANISA Edwards and had the opportunity to ask questions and assume patient care. Addendum: 12/08/21 at 1858 by Linda Valencia RN Amended: Links added.
[2021-12-08] MEDS: DOXYCYCLINE 100MG CAPSULE PO SCH (19:00)
[2021-12-08] MEDS: acetaminophen 325mg tablet PO PRN (20:46)
[2021-12-08] MEDS: cephalexin 500mg capsule PO SCH (20:51)
[2021-12-08 22:00] VITALS: BP 124/82
[2021-12-08] MEDS: temazepam 15mg capsule PO PRN (23:05)
[2021-12-09] MEDS: cephalexin 500mg capsule PO SCH ×3 (02:36→14:00)
[2021-12-09] MEDS: diphenhydrAMINE 25mg capsule PO PRN (02:39)
[2021-12-09] MEDS: acetaminophen 325mg tablet PO PRN (02:39)
[2021-12-09] MEDS: traMADol 50MG tablet PO PRN ×3 (05:40→17:49)
[2021-12-09 06:00] VITALS: BP 124/74
--- NOTE | 2021-12-09 06:26 | NUR ---
Problems reprioritized. Patient report given, questions answered & plan of care reviewed with ANISA CARRENO. Addendum: 12/09/21 at 0627 by Linda Valencia RN Amended: Links added.
--- NOTE | 2021-12-09 06:30 | NUR ---
Patient in room ORTHO 4020. I have received report from Sophia LANGE and had the opportunity to ask questions and assume patient care.
[2021-12-09 07:09] LABS: BASOPHILS # (AUTO) 0.1 X10'3 (0-0.2); EOSINOPHILS % (AUTO) 3.4 % (0-6); LYMPHOCYTES # (AUTO) 2.4 X10'3 (1.1-4.8); MEAN PLATELET VOLUME 7.5 FL (7.4-10.4); NEUTROPHILS % (AUTO) 68.7 % (42-75); RED CELL DISTRIBUTION WIDTH 18.4 % (11.5-14.5)
[2021-12-09 07:12] LABS: BASOPHILS % (AUTO) 0.8 % (0-1); EOSINOPHILS # (AUTO) 0.5 X10'3 (0-0.9); HEMATOCRIT 38.5 % (35.0-45.0); HEMOGLOBIN 12.1 g/dl (12.0-16.0); LYMPHOCYTES % (AUTO) 17.8 % (21-51); MEAN CORPUSCULAR HEMOGLOBIN 25.9 PG (27.0-31.0); MEAN CORPUSCULAR HGB CONC 31.4 g/dL (33.0-36.5); MEAN CORPUSCULAR VOLUME 82.6 FL (78-98); MONOCYTES # (AUTO) 1.2 X10'3 (0-0.9); MONOCYTES % (AUTO) 9.3 % (2-12); NEUTROPHILS # (AUTO) 9.2 X10'3 (1.8-7.7); PLATELET COUNT 626 X10'3 (140-440); RED BLOOD COUNT 4.67 X10'6 (4.20-5.60); WHITE BLOOD COUNT 13.4 X10'3 (4.5-11.0)
[2021-12-09 07:33] LABS: ALANINE AMINOTRANSFERASE 24 U/L (12-78); ALBUMIN 2.7 G/DL (3.4-5.0); ALBUMIN/GLOBULIN RATIO 0.6 (1.1-1.5); ALKALINE PHOSPHATASE 129 IU/L (46-116); ANION GAP 6 (8-16); ASPARTATE AMINO TRANSFERASE 17 U/L (10-37); BILIRUBIN,TOTAL 0.2 MG/DL (0.1-1.0); BLOOD UREA NITROGEN 21 MG/DL (7-18); BUN/CREATININE RATIO 20.2 (6.6-38.0); CALCIUM 9.4 MG/DL (8.5-10.1); CHLORIDE 100 MMOL/L (99-107); CREATININE 1.04 MG/DL (0.40-0.90); GLUCOSE 93 MG/DL (70-104); POTASSIUM 4.3 MMOL/L (3.5-5.1); SODIUM 136 MMOL/L (135-145); TOTAL CARBON DIOXIDE 30.3 MMOL/L (24-32); TOTAL PROTEIN 7.4 G/DL (6.4-8.2); eGFR 59 ML/MIN
[2021-12-09] MEDS: K and/or MAG REPLACEMENT MC SCH (07:33)
[2021-12-09] MEDS: docusate sod 100mg capsule PO SCH (07:39)
[2021-12-09 08:20] LABS: MICROCYTOSIS 1+; PLATELET ESTIMATE INCREASED; TOTAL CELLS COUNTED 100
[2021-12-09 08:21] LABS: ANISOCYTOSIS 2+
[2021-12-09] MEDS: DOXYCYCLINE 100MG CAPSULE PO SCH ×2 (09:06→17:48)
[2021-12-09 10:00] VITALS: BP 137/80
--- NOTE | 2021-12-09 18:09 | NUR ---
PAGER ID: [phone] MESSAGE: [phone] re: Zuleika Emmanuel in [id number]. Pt is saying she's going to leave AMA.
--- NOTE | 2021-12-09 18:15 | NUR ---
Pt was in [place] yelling and went back to room yelling. States "I want to leave now" sat and talked with patient, allowed her to verbalize her feelings. She was calming down and stated she really just wanted a cigarette, offered to call md and obtain nicotine patch. Pt states "i'll think about it". Pt saw security in [place] and started yelling again, states she is leaving and everyone here "just wants to fuck my " "I can take care of myself at home" Pt signed AMA and Rn Indy is in room to remove IV. I have not received report on pt or assumed pt care. Addendum: 12/09/21 at 1900 by Linda Valencia RN Amended: Links added.
[2021-12-11] MEDS ORDERED: VANCOMYCIN LEVEL IV ONE (07:30)
== END 2021-12-09 18:30 | disposition left against medical advice (07) | DRG 720 ==
LOC: ER 12:50 → ED HOLD 20:05 → ORTHO 4S 12-01 19:06
PROVIDERS: ADMIT Family Medicine; ATTEND Internal Medicine
PROC: 3E0234Z Introduction of Serum, Toxoid and Vaccine into Muscle, Percutaneous Approach (ICD-10-PCS; 2021-12-01)
PROC: 0H9U3ZZ Drainage of Left Breast, Percutaneous Approach (ICD-10-PCS; principal; 2021-12-05 14:12)
DX: A41.9 Sepsis, unspecified organism (principal); N17.0 Acute kidney failure with tubular necrosis; E86.0 Dehydration; E87.6 Hypokalemia; F12.19 Cannabis abuse with unspecified cannabis-induced disorder; Z20.822 Contact with and (suspected) exposure to COVID-19; F15.129 Other stimulant abuse with intoxication, unspecified; R79.89 Other specified abnormal findings of blood chemistry; F17.200 Nicotine dependence, unspecified, uncomplicated; N64.59 Other signs and symptoms in breast; R82.4 Acetonuria; I10 Essential (primary) hypertension; N61.1 Abscess of the breast and nipple; Z53.29 Procedure and treatment not carried out because of patient's decision for other reasons; Z88.1 Allergy status to other antibiotic agents; Z88.5 Allergy status to narcotic agent; Z23 Encounter for immunization; Z88.2 Allergy status to sulfonamides; Z79.899 Other long term (current) drug therapy; Z71.51 Drug abuse counseling and surveillance of drug abuser; Z71.6 Tobacco abuse counseling
CPT/HCPCS: 36410; 36415; 71045; 71250; 76642; 80053; 80202; 80305; 81001; 82550; 82948; 83036; 83605; 83735; 83880; 84100; 84132; 84145; 84443; 85007; 85025; 85610; 85730; 87040; 87081; 87635; 90715; 96365; 96375; 99285; A4618; A6446; A6449; A7000; C1751; G0378; J1100; J1170; J1200; J1885; J2060; J2270; J2405; J2543; J2704; J3010; J3370; J3480; J3490; J7030; J7120; Q0163

== ENCOUNTER 2021-12-14 04:18 | Emergency (ER) | payer MEDICAID ==
[~2021-12-14] VITALS: Ht 162.6 cm; Wt 56.8 kg
[2021-12-14] MEDS ORDERED: DOXYCYCLINE 100MG CAPSULE PO STA (06:18)
[2021-12-14] MEDS ORDERED: cephalexin 250mg capsule PO ONE (06:20)
[2021-12-14] MEDS ORDERED: DOXY100C76 PO (06:20)
[2021-12-14] MEDS ORDERED: CEPH250T PO (06:20)
[2021-12-14] MEDS ORDERED: ondansetron 4mg rapidly disintigrating tab PO ONE (06:20)
[2021-12-14] MEDS ORDERED: ibuprofen tablet 400 MG TABLET PO ONE (07:40)
[2021-12-14] MEDS ORDERED: tetanus & diphtheria toxoid (Td) vaccine 0.5ml IMVAC ONE (07:40)
[2021-12-14] MEDS ORDERED: TETanus/Pertussis (Acell)/Diphther VAC/PF (Tdap-Adult) 0.5ml syringe IMVAC ONE (07:50)
[2021-12-14 09:15] VITALS: BP 161/100
--- NOTE | 2021-12-14 10:45 | NUR ---
pt being referred to outpatient wound care as recommended by inpt wound care nurse. Pt has an appointment December 20 @ 11pm
[2021-12-14] MEDS ORDERED: HYDROcodone/acetaminophen 5mg/325mg tablet PO ONE (10:55)
== END 2021-12-14 12:15 | disposition home or self-care (01) ==
LOC: ER 04:18
DX: N61.1 Abscess of the breast and nipple (principal); N61.0 Mastitis without abscess; Z72.89 Other problems related to lifestyle; Z88.2 Allergy status to sulfonamides; Z88.5 Allergy status to narcotic agent; Z88.8 Allergy status to other drugs, medicaments and biological substances; Z79.899 Other long term (current) drug therapy
CPT/HCPCS: 82948; 90471; 90715; 99284

== ENCOUNTER 2022-04-04 03:37 | Emergency (ER) | payer MEDICAID ==
[~2022-04-04] VITALS: Ht 160 cm; Wt 57.0 kg
[2022-04-04] MEDS ORDERED: CEPH250T PO (05:34)
[2022-04-04 05:39] VITALS: BP 150/65
== END 2022-04-04 05:43 | disposition home or self-care (01) ==
LOC: ER 03:38
DX: L70.8 Other acne (principal); F17.200 Nicotine dependence, unspecified, uncomplicated; F19.90 Other psychoactive substance use, unspecified, uncomplicated; Z72.89 Other problems related to lifestyle; Z88.5 Allergy status to narcotic agent; Z88.1 Allergy status to other antibiotic agents; Z88.8 Allergy status to other drugs, medicaments and biological substances; Z79.2 Long term (current) use of antibiotics; Z79.899 Other long term (current) drug therapy
CPT/HCPCS: 99283

== ENCOUNTER 2022-12-23 04:41 | Emergency (ER) | payer MEDICAID ==
[~2022-12-23] VITALS: Ht 162.6 cm; Wt 59.1 kg
[2022-12-23 05:00] VITALS: BP 150/90
[2022-12-23] MEDS ORDERED: BACI28.42 TOP (09:24)
== END 2022-12-23 10:16 | disposition home or self-care (01) ==
LOC: ER 04:41
DX: B88.9 Infestation, unspecified (principal); F17.200 Nicotine dependence, unspecified, uncomplicated; Z88.2 Allergy status to sulfonamides; Z88.5 Allergy status to narcotic agent; Z59.00 Homelessness unspecified; Z56.0 Unemployment, unspecified
CPT/HCPCS: 99283

== ENCOUNTER 2023-05-27 00:34 | Emergency (ER) | payer SELFPAY ==
[~2023-05-27 00:34] MED LIST changes: +BACI28.42 TOP
== END 2023-05-27 01:47 | disposition left against medical advice (07) ==
LOC: ER 00:35
DX: L70.9 Acne, unspecified (principal); Z53.21 Procedure and treatment not carried out due to patient leaving prior to being seen by health care provider

== ENCOUNTER 2023-06-06 22:12 | Emergency (ER) | payer SELFPAY ==
[~2023-06-06] VITALS: Ht 162.6 cm; Wt 56.9 kg
[2023-06-06 22:14] VITALS: BP 155/78; PULSE 78; RESP 18; TEMP 97.9; O2SAT 100
--- NOTE | 2023-06-06 22:51 | NUR ---
AT BEDSIDE WITH MD FOR PELVIC EXAM.
[2023-06-06] MEDS ORDERED: CLOT21CR7 VG (22:57)
== END 2023-06-06 23:34 | disposition home or self-care (01) ==
LOC: ER 22:12
DX: B37.31 Acute candidiasis of vulva and vagina (principal); Z59.00 Homelessness unspecified; Z56.0 Unemployment, unspecified; Z88.5 Allergy status to narcotic agent; Z88.2 Allergy status to sulfonamides; Z79.899 Other long term (current) drug therapy
CPT/HCPCS: 99283; 99284

== ENCOUNTER 2023-10-01 19:41 | Emergency (ER) | payer MEDICAID ==
[~2023-10-01 19:41] MED LIST changes: +CEPH-585 PO; +CLOT21CR7 VG
== END 2023-10-01 19:48 | disposition left against medical advice (07) ==
LOC: ER 19:43
DX: H57.89 Other specified disorders of eye and adnexa (principal); Z53.21 Procedure and treatment not carried out due to patient leaving prior to being seen by health care provider

== ENCOUNTER 2024-01-01 01:21 | Emergency (ER) | payer MEDICAID ==
[~2024-01-01] VITALS: Ht 160 cm; Wt 55.3 kg
[2024-01-01 01:23] VITALS: TEMP 97.6
[2024-01-01 05:14] VITALS: BP 175/112; PULSE 72; RESP 14; O2SAT 100
[2024-01-01] MEDS ORDERED: DOXY150T3 PO (07:46)
[2024-01-01] MEDS: DOXYCYCLINE 100MG CAPSULE PO STA (08:02)
[2024-01-01] MEDS: ketorolac tromethamine 15mg/ml inj. IM ONE (08:02)
== END 2024-01-01 09:12 | disposition home or self-care (01) ==
LOC: ER 01:22
DX: S00.83XA Contusion of other part of head, initial encounter (principal); F10.90 Alcohol use, unspecified, uncomplicated; F19.90 Other psychoactive substance use, unspecified, uncomplicated; Z88.8 Allergy status to other drugs, medicaments and biological substances; Z79.899 Other long term (current) drug therapy; Z79.2 Long term (current) use of antibiotics; Z60.2 Problems related to living alone; Z59.00 Homelessness unspecified; Z56.0 Unemployment, unspecified; W18.39XA Other fall on same level, initial encounter; Y93.89 Activity, other specified; Y92.89 Other specified places as the place of occurrence of the external cause; Y99.8 Other external cause status
CPT/HCPCS: 96372; 99283; J1885

== ENCOUNTER 2024-05-01 18:07 | Emergency (ER) | payer MEDICAID ==
[~2024-05-01] VITALS: Ht 160 cm; Wt 67.0 kg
[~2024-05-01 18:07] MED LIST changes: -CEPH-585 PO
[2024-05-01 18:09] VITALS: BP 125/86; PULSE 79; RESP 16; TEMP 98; O2SAT 100
[2024-05-01] MEDS ORDERED: DICY10CA88 PO (18:17)
[2024-05-01] MEDS ORDERED: LOPE-144 PO (18:17)
[2024-05-01] MEDS: loperamide 2mg capsule PO ONE (18:22)
[2024-05-01] MEDS: dicyclomine 10 MG capsule PO ONE (18:22)
== END 2024-05-01 18:27 | disposition home or self-care (01) ==
LOC: ER 18:08
DX: R19.7 Diarrhea, unspecified (principal); Z88.5 Allergy status to narcotic agent; Z88.2 Allergy status to sulfonamides; Z88.1 Allergy status to other antibiotic agents; Z59.00 Homelessness unspecified
CPT/HCPCS: 99283

== ENCOUNTER 2024-05-05 12:25 | Emergency (ER) | payer MEDICAID ==
[~2024-05-05] VITALS: Ht 160 cm; Wt 130.0 kg
[~2024-05-05 12:25] MED LIST changes: +DICY10CA88 PO; +LOPE-144 PO
[2024-05-05 12:58] VITALS: BP 121/85; PULSE 60; RESP 18; TEMP 97.8; O2SAT 100
== END 2024-05-05 19:52 | disposition left against medical advice (07) ==
LOC: ER 12:25
DX: R10.84 Generalized abdominal pain (principal); R11.2 Nausea with vomiting, unspecified; R19.7 Diarrhea, unspecified; Z53.21 Procedure and treatment not carried out due to patient leaving prior to being seen by health care provider

== ENCOUNTER 2024-06-15 09:03 | Emergency (ER) | payer MEDICAID ==
[~2024-06-15] VITALS: Ht 162.6 cm; Wt 56.0 kg
[~2024-06-15 09:03] MED LIST changes: -DICY10CA88 PO
[2024-06-15 09:04] VITALS: BP 126/91; PULSE 91; RESP 16; TEMP 98.3; O2SAT 98
== END 2024-06-15 11:06 | disposition left against medical advice (07) ==
LOC: ER 09:04
DX: J18.9 Pneumonia, unspecified organism (principal); Z53.21 Procedure and treatment not carried out due to patient leaving prior to being seen by health care provider

== ENCOUNTER 2024-06-26 01:36 | Emergency (ER) | payer MEDICAID ==
[~2024-06-26] VITALS: Ht 162.6 cm; Wt 52.3 kg
[2024-06-26 01:45] VITALS: BP 154/79; PULSE 102; RESP 20; O2SAT 98
[2024-06-26] MEDS ORDERED: AZIT-164 PO (03:03)
[2024-06-26 03:13] VITALS: TEMP 98.3
== END 2024-06-26 03:24 | disposition home or self-care (01) ==
LOC: ER 01:37
DX: H92.02 Otalgia, left ear (principal); Z88.2 Allergy status to sulfonamides; Z88.5 Allergy status to narcotic agent; Z88.1 Allergy status to other antibiotic agents; Z79.899 Other long term (current) drug therapy
CPT/HCPCS: 99283

== ENCOUNTER 2024-07-01 23:22 | Emergency (ER) | payer MEDICAID ==
[~2024-07-01] VITALS: Ht 157.5 cm; Wt 53.9 kg
[~2024-07-01 23:22] MED LIST changes: +AZIT-164 PO
[2024-07-01 23:24] VITALS: BP 139/88; PULSE 87; RESP 16; O2SAT 100
[2024-07-01] MEDS ORDERED: NAPR-996 PO (23:52)
[2024-07-02 00:08] VITALS: TEMP 98.2
== END 2024-07-02 00:09 | disposition home or self-care (01) ==
LOC: ER 23:23
DX: R52 Pain, unspecified (principal); Z76.0 Encounter for issue of repeat prescription; Z88.2 Allergy status to sulfonamides; Z88.5 Allergy status to narcotic agent; Z88.3 Allergy status to other anti-infective agents; Z79.2 Long term (current) use of antibiotics; Z79.899 Other long term (current) drug therapy
CPT/HCPCS: 99281

== ENCOUNTER 2024-07-09 20:38 | Emergency (ER) | payer MEDICAID ==
[~2024-07-09] VITALS: Ht 162.6 cm; Wt 58.6 kg
[~2024-07-09 20:38] MED LIST changes: +NAPR-996 PO
[2024-07-09 21:04] VITALS: BP 151/94; PULSE 70; RESP 14; TEMP 98.3; O2SAT 100
[2024-07-09] MEDS: naproxen 500mg tablet PO ONE (21:55)
== END 2024-07-09 22:02 | disposition home or self-care (01) ==
LOC: ER 20:38
DX: G89.29 Other chronic pain (principal); Z88.5 Allergy status to narcotic agent; Z88.2 Allergy status to sulfonamides; Z88.3 Allergy status to other anti-infective agents; Z59.00 Homelessness unspecified
CPT/HCPCS: 99282

== ENCOUNTER 2024-07-15 03:14 | Emergency (ER) | payer MEDICAID ==
[~2024-07-15] VITALS: Ht 157.5 cm; Wt 53.2 kg
[2024-07-15 03:16] VITALS: BP 142/106; PULSE 82; RESP 16; TEMP 98.2; O2SAT 100
== END 2024-07-15 03:39 | disposition home or self-care (01) ==
LOC: ER 03:14
DX: R11.10 Vomiting, unspecified (principal); Z88.5 Allergy status to narcotic agent; Z88.2 Allergy status to sulfonamides; Z79.899 Other long term (current) drug therapy; Z59.00 Homelessness unspecified; Z56.0 Unemployment, unspecified; Z60.2 Problems related to living alone
CPT/HCPCS: 99281

== ENCOUNTER 2024-08-15 23:32 | Emergency (ER) | payer MEDICAID ==
[~2024-08-15] VITALS: Ht 160 cm; Wt 52.3 kg
[~2024-08-15 23:32] MED LIST changes: -AZIT-164 PO
[2024-08-15 23:40] VITALS: BP 156/112; PULSE 73; RESP 18; O2SAT 100
[2024-08-16] MEDS: azithromycin 250mg tablet PO ONE (00:37)
[2024-08-16 00:43] VITALS: TEMP 98.3
== END 2024-08-16 00:46 | disposition home or self-care (01) ==
LOC: ER 23:33
DX: J02.9 Acute pharyngitis, unspecified (principal); Z88.2 Allergy status to sulfonamides; Z88.5 Allergy status to narcotic agent; Z88.8 Allergy status to other drugs, medicaments and biological substances; Z79.899 Other long term (current) drug therapy; Z56.0 Unemployment, unspecified; Z59.00 Homelessness unspecified; Z60.2 Problems related to living alone
CPT/HCPCS: 99283

== ENCOUNTER 2024-08-19 08:19 | Emergency (ER) | payer MEDICAID ==
[~2024-08-19] VITALS: Ht 167.6 cm; Wt 65.9 kg
[~2024-08-19 08:19] MED LIST changes: +NAPR-1168 PO; -NAPR-996 PO
[2024-08-19] MEDS ORDERED: BACI1PAC7 TOP (10:43)
[2024-08-19 11:01] VITALS: BP 160/98; PULSE 88; RESP 18; TEMP 97; O2SAT 99
== END 2024-08-19 11:03 | disposition home or self-care (01) ==
LOC: ER 08:20
DX: M79.672 Pain in left foot (principal); M79.671 Pain in right foot; Z88.5 Allergy status to narcotic agent; Z88.2 Allergy status to sulfonamides; Z88.8 Allergy status to other drugs, medicaments and biological substances; Z59.00 Homelessness unspecified; Z72.89 Other problems related to lifestyle; Z60.2 Problems related to living alone; Z56.0 Unemployment, unspecified
CPT/HCPCS: 99283; L3260; 99282

== ENCOUNTER 2024-08-20 03:15 | Emergency (ER) | payer MEDICAID ==
[~2024-08-20] VITALS: Ht 160 cm; Wt 52.2 kg
[~2024-08-20 03:15] MED LIST changes: +BACI1PAC7 TOP; -NAPR-1168 PO; +NAPR-996 PO
[2024-08-20 03:46] VITALS: BP 125/72; PULSE 75; RESP 14; TEMP 97.1; O2SAT 99
== END 2024-08-20 04:04 | disposition home or self-care (01) ==
LOC: ER 03:16
DX: M79.675 Pain in left toe(s) (principal); M79.674 Pain in right toe(s); Z88.1 Allergy status to other antibiotic agents; Z88.2 Allergy status to sulfonamides; Z88.5 Allergy status to narcotic agent; Z88.8 Allergy status to other drugs, medicaments and biological substances
CPT/HCPCS: 99281

== ENCOUNTER 2024-08-27 04:51 | Emergency (ER) | payer MEDICAID ==
[~2024-08-27] VITALS: Ht 160 cm; Wt 57.4 kg
[~2024-08-27 04:51] MED LIST changes: +NAPR-1168 PO; -NAPR-996 PO
[2024-08-27 04:56] VITALS: BP 160/107; PULSE 93; TEMP 97.9; O2SAT 100
[2024-08-27] MEDS ORDERED: NAPR-56 PO (08:26)
[2024-08-27 08:45] VITALS: RESP 16
[2024-08-27] MEDS: ketorolac trometh 15mg/ml vial 15 MG/ML ML IM ONE (08:45)
== END 2024-08-27 09:31 | disposition home or self-care (01) ==
LOC: ER 04:52
DX: M79.671 Pain in right foot (principal); M79.672 Pain in left foot; Z88.5 Allergy status to narcotic agent; Z88.2 Allergy status to sulfonamides; Z88.1 Allergy status to other antibiotic agents; Z88.3 Allergy status to other anti-infective agents; Z79.899 Other long term (current) drug therapy
CPT/HCPCS: 96372; 99283; J1885

== ENCOUNTER 2024-09-08 05:14 | Emergency (ER) | payer MEDICAID ==
[~2024-09-08] VITALS: Ht 162.6 cm; Wt 52.0 kg
[~2024-09-08 05:14] MED LIST changes: +NAPR-56 PO
[2024-09-08] MEDS ORDERED: TOLN108P2 TOP (05:44)
[2024-09-08 05:56] VITALS: BP 134/88; PULSE 68; RESP 15; TEMP 97; O2SAT 100
== END 2024-09-08 06:02 | disposition home or self-care (01) ==
LOC: ER 05:16
DX: M21.611 Bunion of right foot (principal); M21.612 Bunion of left foot; Z88.2 Allergy status to sulfonamides; Z88.5 Allergy status to narcotic agent; Z88.1 Allergy status to other antibiotic agents
CPT/HCPCS: 99282

== ENCOUNTER 2024-09-23 20:17 | Emergency (ER) | payer MEDICAID ==
[~2024-09-23] VITALS: Ht 160 cm; Wt 56.9 kg
[~2024-09-23 20:17] MED LIST changes: -BACI1PAC7 TOP; +TOLN108P2 TOP
[2024-09-23 20:36] VITALS: BP 155/67; PULSE 95; RESP 15; O2SAT 99
== END 2024-09-23 21:02 | disposition left against medical advice (07) ==
LOC: ER 20:18
DX: A49.02 Methicillin resistant Staphylococcus aureus infection, unspecified site (principal); Z88.5 Allergy status to narcotic agent; Z88.8 Allergy status to other drugs, medicaments and biological substances; Z53.21 Procedure and treatment not carried out due to patient leaving prior to being seen by health care provider

== ENCOUNTER 2024-11-20 02:19 | Emergency (ER) | payer MEDICAID ==
[~2024-11-20] VITALS: Ht 162.6 cm; Wt 54.5 kg
[~2024-11-20 02:19] MED LIST changes: -NAPR-56 PO
[2024-11-20 02:30] VITALS: PULSE 83; RESP 16; O2SAT 100
[2024-11-20] MEDS ORDERED: CEPH-585 PO (03:00)
--- NOTE | 2024-11-20 03:01 | Physician Documentation ---
History of Present Illness ~ Chief Complaint: Wound Stated Complaint: WOUND Time Seen by MD: 02:51 Primary Medical Doctor: N/A HPI This patient is a spectacular poor historian. This is a 44-year-old female who presents for evaluation of rash in the right side of her face that has been present for several days, possibly longer. The patient is not clear on actual duration of symptoms. 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 No palliating or aggravating factors, did not attempt to treat the symptoms. Denies any other symptoms. Denies difficulty opening her mouth. Difficulty speaking. Difficulty breathing. Denies chest pain. Denies fevers. Tetanus within 5 years?: Yes Medication Reconciliation Allergies: Coded Allergies: codeine (Verified Allergy, Severe, 11/20/24) sulfamethoxazole (Verified Allergy, Unknown, 11/20/24) trimethoprim (Verified Allergy, Unknown, 11/20/24) Scheduled Bacitracin (Bacitracin), 2 GM TOP DAILY Clotrimazole (Clotrimazole 3), 1 APPLICATOR VG HS Ondansetron Hcl (Zofran), 1 TAB PO Q6H Scheduled PRN Loperamide HCl (Imodium A-D), 1 TAB PO Q4H PRN for constipation Naproxen (Naproxen), 1 TAB PO Q12H PRN for pain Tolnaftate (Tinactin), 1 APPLIC TOP Q12H PRN PRN for pain Past Medical History Past Medical History: Cellulitis, *PSYCH* Past Surgical History: noncontributory Smoking Status: Current every day smoker Alcohol Use: Other Drug Use: other Lives with: Alone Lives In: Homeless Occupation: unemployed Review of Systems ROS 10 point review of systems was performed and unless noted above in HPI is negative for acute process/complaint. Physical Exam Vital Signs: Temperature: 98.4, Source: Temporal, Heart Rate: 83, Respiratory Rate: 16, Pulse Oximetry: 100, Weight: 54.550 Physical Exam Physical examination: GENERAL: Awake, alert, oriented, GCS 15, no apparent distress, non-toxic appearing, answers questions, follows commands appropriately. HEENT: Atraumatic, normocephalic, pupils equal, extraocular muscles intact Active gross movements, sclerae anicteric, mucus membranes moist, no stridor. NECK: Midline, no JVD CARDIOVASCULAR: Good skin perfusion without evidence of pallor, mottling. PULMONARY: Nonlabored, symmetric chest rise, no audible wheezing, no accessory muscle use, no respiratory distress, speaking in full sentences. GASTROINTESTINAL: Not distended. NEUROLOGIC: Lucid with normal mental status. Normal facial symmetry. Moves all extremities symmetrically and with purpose. No truncal ataxia. Speech is fluid without evidence of dysarthria or aphasia, no focal deficits appreciated. EXTREMITIES: Acute deformities Skin: warm, dry PSYCHIATRIC: Normal affect, normal insight, normal concentration. Focused exam: [] Small area of induration and cellulitis of the right cheek just lateral to the mouth. No active bleeding. No purulent discharge. No h oney crusting. I Progress Results/Orders Results/Orders Vital Signs 11/20/24 02:30 Temp 98.4 Pulse 83 Resp 16 Pulse Ox 100 Medical Decision Making Findings Facility Status: ED Holds, [facility] process The plan was discussed with the patient, who demonstrates clear understanding of the plan and is in agreement with the plan unless otherwise noted in the chart. All questions have been answered, all concerns were addressed unless otherwise documented. I was available throughout their ED stay for frequent reassessment and questions. Differential Diagnoses (considered and possible or likely): [Cellulitis, erysipelas, impetigo, less likely abscess, herpes has been considered including herpes simplex and varicella zoster but less likely based on clinical presentation] ??Differential Diagnoses (considered and unlikely, not requiring evaluation currently): [See above] MDM Data Please see [facility] for the following: Independent Historians and external Records Review. Historian: [Patient] Independent Historians: ?[Record review] Medication Management: [Reviewed medication list] Social History and determinants: [Reviewed] Please see the body of the note for the following: Any independent interpretations of ECG, imaging studies. All vitals signs/haemodynamics, ordered tests were independently reviewed and interpreted by myself. Nursing triage complaint and vitals reviewed, additional nursing notes were reviewed as available and I agree unless otherwise noted or documented in contradiction in the chart Vital Signs: Independently reviewed Labs: Independently interpreted Imaging: Independently interpreted Old Medical Records: Independently reviewed, see [facility] for relevant summary and information Additionally notably showing: [Hemodynamically stable] Tests considered but not ordered include: [Hematologic workup and imaging has been considered but does not appear to be necessary given clinical nature of diagnosis] Social Determinants of Health Impact: Patient was evaluated in [facility], or [facility] [place] access to healthcare due to below par ratio of patient to medical providers. [] Comorbid Conditions Impacting Present Evaluation and Care/Treatment: [None reported by the patient] Management Discussions with other Healthcare Providers: [None] Treatment and Disposition Medication Management (Given or considered): [Initial dose of antibiotics]. See EMR for details Consideration for Hospitalization/Escalation/Deescalation of Care: Admission for observation has been considered, [however the patient is able to tolerate p.o., their symptoms are controlled, they are able to rely on oral medications, and their chief complaint/diagnosis can be managed on outpatient basis.] ?ED Course:?[No clinical deterioration] ?Shared decision making:? Patient is hemodynamically stable for discharge home with follow with their primary care provider. [ ] Specific and cautious return precautions provided and discussed with full understanding. Any incidental findings were also discussed and follow up recommendations given. [] All questions answered. Patient/family were able to verbalize back return precautions. Patient/family agree to plan. Copies of imaging and laboratory studies were provided. Code status:?FULL Please see the full Electronic Medical Record for full details of nursing documentation, medications list, other records of complete past medical history and conditions, vital signs, laboratory studies, and any radiologic study interpretations by radiologists. Portions of this note were completed using [employer] dictation software and as a result there may exist minor errors in spelling. I have reviewed elements of past family and social history and agree as included in note. Departure Disposition: HOME / SELF CARE / HOMELESS Impression: Primary Impression: Facial cellulitis Condition: Stable Discharge Instructions: Cellulitis, Adult Referrals: NO PRIMARY CARE PROVIDER (PCP) Prescriptions Cephalexin*Monohydrate* (Keflex*) 500 Mg Capsule 1 CAP PO Q6H for 10 Days, #40 CAP Prov: COLIN ALMANZA DO 11/20/24 Education Educated: Patient Educated regarding: diagnosis, treatment, prognosis, need for follow up Signature Scribe Signature: No scribe Attestation: This note accurately reflects clinical decisions, work performed by myself, DO ARCHIE Rogers NICHOLAS M DO November 20, 2024 03:01
[2024-11-20 03:04] VITALS: TEMP 98.4
== END 2024-11-20 03:06 | disposition home or self-care (01) ==
LOC: ER 02:20
DX: L03.211 Cellulitis of face (principal); F17.200 Nicotine dependence, unspecified, uncomplicated; Z88.5 Allergy status to narcotic agent; Z88.2 Allergy status to sulfonamides; Z59.00 Homelessness unspecified; Z79.899 Other long term (current) drug therapy; Z56.0 Unemployment, unspecified; Z60.2 Problems related to living alone
CPT/HCPCS: 99283

== ENCOUNTER 2024-12-27 18:33 | Emergency (ER) | payer MEDICAID ==
[~2024-12-27] VITALS: Ht 160 cm; Wt 89.2 kg
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
[2024-12-27] MEDS: ketorolac trometh 30MG/ML vial 30 MG/ML VIAL IM ONE (19:02)
--- NOTE | 2024-12-27 19:10 | RADIOLOGY REPORT ---
CLINICAL INDICATION: HAND PAIN TECHNIQUE: DI HAND, COMPLETE (3VW MIN) Comparison: None FINDINGS/IMPRESSION: : There is no evidence of acute fracture or dislocation. Mild 1st CMC joint osteoarthritis. Mild degenerative change of the proximal 5th interphalangeal join t. Overlying soft tissues are intact.
[2024-12-27] MEDS ORDERED: DOXY-1 PO (19:35)
[2024-12-27] MEDS: DOXYCYCLINE 100MG CAPSULE PO STA (19:48)
[2024-12-27 19:58] VITALS: BP 122/60; PULSE 68; RESP 16; TEMP 98.2; O2SAT 98
== END 2024-12-27 20:00 | disposition home or self-care (01) ==
LOC: ER 18:33
DX: L03.211 Cellulitis of face (principal); M25.531 Pain in right wrist; J02.9 Acute pharyngitis, unspecified; Z88.1 Allergy status to other antibiotic agents; Z88.2 Allergy status to sulfonamides; Z88.5 Allergy status to narcotic agent; Z88.8 Allergy status to other drugs, medicaments and biological substances
CPT/HCPCS: 73130; 96372; 99283; J1885

== ENCOUNTER 2025-04-08 11:33 | Emergency (ER) | payer MEDICAID ==
[~2025-04-08] VITALS: Ht 160 cm; Wt 55.0 kg
[2025-04-08 11:44] VITALS: BP 132/82; PULSE 82; RESP 14; TEMP 99.1; O2SAT 99
[2025-04-08] MEDS ORDERED: IBUP-1986 PO (11:51)
--- NOTE | 2025-04-08 11:53 | Physician Documentation ---
HPI ~ General Chief Complaint: Tooth Problem Stated Complaint: JAW PAIN Primary Medical Doctor: N/A History of Present Illness HPI Comment This is a 44-year-old female with history of chronic dental pain who presents by EMS for dental pain, patient reports pain is in all of her teeth, per EMS patient received Toradol and route. Patient is requesting narcotics for dental pain. Reports no other acute symptoms or concerns. Medication Reconciliation Allergies: Coded Allergies: codeine (Verified Allergy, Severe, 04/08/25) sulfamethoxazole (Verified Allergy, Unknown, 04/08/25) trimethoprim (Verified Allergy, Unknown, 04/08/25) Scheduled Bacitracin (Bacitracin), 2 GM TOP DAILY Clotrimazole (Clotrimazole 3), 1 APPLICATOR VG HS Ibuprofen (Ibuprofen), 1 TAB PO Q8H Ondansetron Hcl (Zofran), 1 TAB PO Q6H Scheduled PRN Loperamide HCl (Imodium A-D), 1 TAB PO Q4H PRN for constipation Naproxen (Naproxen), 1 TAB PO Q12H PRN for pain Tolnaftate (Tinactin), 1 APPLIC TOP Q12H PRN PRN for pain Past Medical History Past Medical History: Cellulitis, *PSYCH* Past Surgical History: noncontributory Alcohol Use: Other Drug Use: other Lives with: Alone Lives In: Homeless Occupation: unemployed Review of Systems ROS As stated above in the HPI, otherwise all systems are reviewed and negative. Physical Exam Vital Signs: Temperature: 99.1, Source: Temporal, Heart Rate: 82, Respiratory Rate: 14, BP: 132/82, Pulse Oximetry: 99, Weight: 55.000 Physical Exam VITALS: Reviewed and as above. GENERAL: Alert, nontoxic appearing, no apparent distress. HEENT: Multiple teeth with decay and caries, no gingival swelling, no facial swelling, no elevation of the tongue, no submandibular swelling RESPIRATORY: No increased work of breathing, no respiratory distress, speaking in full clear sentences Progress Results/Orders Results/Orders Vital Signs 04/08/25 11:44 Temp 99.1 Pulse 82 Resp 14 B/P (MAP) 132/82 Pulse Ox 99 Medical Decision Making Findings This well appearing 44-year-old female presented with dental pain to multiple teeth. Based on history and physical exam I have low clinical suspicion for peritonsillar abscess, uvulitis, deep tissue space infection of the head/neck, or impending airway compromise. There was no submandibular swelling or elevation of the tongue, the uvula was midline, patient is able to swallow fluids and secretion without difficulty, there is no increased work of breathing or noisy breathing. Physical exam and history of longstanding dental pain without new or focal symptoms I have low suspicion for infectious cause of pain therefore antibiotics not indicated. Additionally I have low suspicion that the patient's dental pain is related to infection, cancer, or acute trauma. Pain control with non-narcotic medications is appropriate at this time. Patient provided follow up instructions, home care instructions and return to care precautions. Differential Dx:Considerations: Include: Alveolar fracture, Alveolar osteitis, ANUG, Facial Cellulitis, Periapical abscess, Peridontal abscess, Post-extraction bleeding, Pulpitis, Tooth avulsion, Tooth eruption, Tooth Fracture, Trigeminal neuralgia, Tooth subluxation, Other (Win's angina) Departure Time of Disposition: 11:49 Disposition: 01 HOME / SELF CARE / HOMELESS Impression: Primary Impression: Toothache Condition: Improved Discharge Instructions: Dental Pain Additional Instructions: Follow up with a dentist as soon as possible, you may use the prescribed high- dose ibuprofen as needed for pain, you may add Tylenol as needed for breakthrough pain as directed by [id number] packaging. Please follow up with your primary care provider or the [facility] in the next few days. Please return to the emergency department for any new or worsening concerning symptoms. Referrals: NO PRIMARY CARE PROVIDER (PCP) Prescriptions Ibuprofen (Ibuprofen) 800 Mg Tablet 1 TAB PO Q8H for pain for 10 Days, #30 TAB 0 Refills Prov: KATERINA ARRIAGA 04/08/25 Education Educated: Patient Educated regarding: diagnosis, treatment, prognosis, need for follow up Signature Scribe Signature: No scribe Attestation: The note accurately reflects work and decisions made by me.LUBA Shepard 04/09/25 11:40 KATERINA ARRIAGA Apr 08, 2025 11:53
== END 2025-04-08 12:04 | disposition home or self-care (01) ==
LOC: ER 11:34
DX: K08.89 Other specified disorders of teeth and supporting structures (principal); Z88.1 Allergy status to other antibiotic agents; Z88.2 Allergy status to sulfonamides; Z88.5 Allergy status to narcotic agent; Z88.8 Allergy status to other drugs, medicaments and biological substances
CPT/HCPCS: 99283

== ENCOUNTER 2025-05-02 04:02 | Emergency (ER) | payer MEDICAID ==
[~2025-05-02] VITALS: Ht 167.6 cm; Wt 57.6 kg
[~2025-05-02 04:02] MED LIST changes: +IBUP-1986 PO
[2025-05-02 04:06] VITALS: RESP 18
[2025-05-02 04:48] LABS: MEAN PLATELET VOLUME 8.2 FL (7.4-10.4); RED CELL DISTRIBUTION WIDTH 16.3 % (11.5-14.5)
[2025-05-02 04:54] LABS: LEUKOCYTE ESTERASE ,URINE MODERATE (Neg); NITRITES, URINE NEGATIVE (Neg); OCCULT BLOOD,URINE NEGATIVE (Neg)
[2025-05-02 04:55] LABS: URINE HCG NEGATIVE (NEG)
[2025-05-02 05:00] VITALS: BP 167/120; PULSE 65; O2SAT 99
[2025-05-02 05:02] LABS: CREATININE 0.66 MG/DL (0.40-0.90); TOTAL CARBON DIOXIDE 26.7 MMOL/L (24-32); eCRCL 100 ML/MIN; eGFR > 90 ML/MIN
[2025-05-02 05:02] LABS: UA COLLECTION TYPE NON-SPECIFIED
[2025-05-02 05:06] LABS: MUCUS STRANDS FEW /LPF (Neg); SQUAMOUS EPITHELIAL CELL,UR FEW /LPF (FEW)
[2025-05-02 05:10] LABS: ETHANOL < 10 MG/DL (<10)
[2025-05-02 05:23] LABS: URINE AMPHETAMINE SCREEN POSITIVE (Neg); URINE BARBITUATE SCREEN NEGATIVE (Neg); URINE BENZODIAZEPINES SCREEN NEGATIVE (Neg); URINE CANNABINOID SCREEN POSITIVE (Neg); URINE COCAINE SCREEN NEGATIVE (Neg); URINE METHADONE SCREEN NEGATIVE (Neg); URINE OPIATE SCREEN NEGATIVE (Neg); URINE PHENCYCLIDINE SCREEN NEGATIVE (Neg)
[2025-05-02] MEDS ORDERED: CIPR-546 PO (05:24)
--- NOTE | 2025-05-02 05:24 | Physician Documentation ---
History of Present Illness Chief Complaint: Abdominal Pain Stated Complaint: N/V Time Seen by MD: 04:08 Primary Medical Doctor: N/A Mode of Arrival: EMS HPI 44 year old female BIB EMS who called 911 after experiencing nausea, vomiting, and diarrhea as well as diffuse abdominal pain. Denies fever, urinary symptoms. Medication Reconciliation Allergies: Coded Allergies: codeine (Verified Allergy, Severe, 04/08/25) sulfamethoxazole (Verified Allergy, Unknown, 04/08/25) trimethoprim (Verified Allergy, Unknown, 04/08/25) Scheduled Bacitracin (Bacitracin), 2 GM TOP DAILY Clotrimazole (Clotrimazole 3), 1 APPLICATOR VG HS Ibuprofen (Ibuprofen), 1 TAB PO Q8H Ondansetron Hcl (Zofran), 1 TAB PO Q6H Scheduled PRN Loperamide HCl (Imodium A-D), 1 TAB PO Q4H PRN for constipation Naproxen (Naproxen), 1 TAB PO Q12H PRN for pain Tolnaftate (Tinactin), 1 APPLIC TOP Q12H PRN PRN for pain Past Medical History Past Medical History: Cellulitis, *PSYCH* Past Surgical History: noncontributory Alcohol Use: Other Drug Use: other Lives with: Alone Lives In: Homeless Occupation: unemployed Review of Systems All Other Systems at this time: Reviewed and Negative Physical Exam Vital Signs: RN Vital Signs have been reviewed: Yes, Temperature: 98.5, Source: Oral, Heart Rate: 70, Respiratory Rate: 18, BP: 156/121, Pulse Oximetry: 100, Weight: 57.600 Oxygen Flow Rate: 0 Physical Exam HEENT: PERRL, moist oral mucosa, EOMI Pulmonary: No respiratory distress Cardiac: RRR, no murmur, rub or gallop GI: nondistended, soft, nontender, no guarding, no rebound MSK: no deformity Skin: w/d/i, no rash Neuro: alert, nonfocal Psych: normal affect Progress Results/Orders Results/Orders Orders - RANDA HURT MD Drug Screen, Urine (05/02/25 04:10) Hcg, Ur Ql (05/02/25 04:10) Cult Urine + Novelty Ct (05/02/25 05:03) Completed Orders - RANDA HURT MD CMP (05/02/25 04:10) Cbc/Diff (05/02/25 04:10) Ethanol (05/02/25 04:10) Ua W/Microscopic, Cult If Ind (05/02/25 04:15) Vital Signs 05/02/25 04:06 Temp 98.5 Pulse 70 Resp 18 B/P (MAP) 156/121 Pulse Ox 100 O2 Flow Rate 0 Laboratory Tests Test 05/02/25 04:15 05/02/25 04:24 Urine Specimen Description Non-specified Urine Color Yellow Urine Clarity Clear Urine pH 5.5 Urine Specific [place] 1.020 Urine Protein Negative Urine Glucose (UA) Negative Urine Ketones Negative Urine Occult Blood Negative Urine Nitrite Negative Urine Bilirubin Negative Urine Urobilinogen 0.2 Urine Leukocyte Esterase Moderate H Urine RBC None seen Urine WBC 5-10 H Urine Squamous Epithelial Cells Few Urine Bacteria Few Urine Mucus Few Urine Culture Indicated Indicated Volume Urine Centrifuged 10 ml Urine HCG, Qualitative Negative Urine Comment Drug Screen Comment White Blood Count 10.8 Red Blood Count 4.03 L Hemoglobin 11.4 L Hematocrit 34.6 L Mean Corpuscular Volume 85.9 Mean Corpuscular Hemoglobin 28.2 Mean Corpuscular Hemoglobin Concent 32.8 L Red Cell Distribution Width 16.3 H Platelet Count 312 Mean Platelet Volume 8.2 Neutrophils (%) (Auto) 62.4 Lymphocytes (%) (Auto) 24.1 Monocytes (%) (Auto) 10.2 Eosinophils (%) (Auto) 2.7 Basophils (%) (Auto) 0.6 Neutrophils # (Auto) 6.7 Lymphocytes # (Auto) 2.6 Monocytes # (Auto) 1.1 H Eosinophils # (Auto) 0.3 Basophils # (Auto) 0.1 CBC Comment Sodium Level 137 Potassium Level 3.2 L Chloride Level 106 Carbon Dioxide Level 26.7 Anion Gap 4 L Blood Urea Nitrogen 9 Creatinine 0.66 Estimated GFR/1.73 m2 > 90 BUN/Creatinine Ratio 13.6 Glucose Level 76 Calcium Level 7.1 L Total Bilirubin 0.2 Aspartate Amino Transf (AST/SGOT) 20 Alanine Aminotransferase (ALT/SGPT) 26 Alkaline Phosphatase 81 Total Protein 6.3 L Albumin 2.8 L Globulin 3.5 Albumin/Globulin Ratio 0.8 L Chemistry Comments Ethyl Alcohol Level < 10 Medical Decision Making Additional information obtaine: N/A Findings 44 year old female with abdominal pain. Workup demonstrated only UTI as cause of her abdominal discomfort. I did not feel a CT was warranted at this time. Rx Abx and return precautions. Differential Dx:Considerations: -Threatened, Appendicitis, Bowel obstruction, Cholangitis, Constipation, Gastroenteritis, Hepatitis, Pancreatitis, Urinary obstruction, Urinary tract infection, Urolithiasis Departure Disposition: HOME / SELF CARE / HOMELESS Impression: Primary Impression: Abdominal pain Condition: Stable Discharge Instructions: Abdominal Pain (Nonspecific) Referrals: NO PRIMARY CARE PROVIDER (PCP) Prescriptions Ciprofloxacin Hcl (Ciprofloxacin Hcl) 500 Mg Tablet 1 TAB PO Q12H for 7 Days, #14 TAB Prov: RANDA HURT MD 05/02/25 Education Educated: Patient Educated regarding: diagnosis, treatment, prognosis, need for follow up Signature Scribe Signature: . Attestation: . RANDA HURT MD May 02, 2025 05:24
[2025-05-02 05:35] VITALS: TEMP 98.5
[2025-05-02] MEDS: ciprofloxacin 250mg tablet PO ONE (05:44)
== END 2025-05-02 05:49 | disposition home or self-care (01) ==
LOC: ER 04:03
DX: R10.84 Generalized abdominal pain (principal); R11.2 Nausea with vomiting, unspecified; R19.7 Diarrhea, unspecified; Z88.5 Allergy status to narcotic agent; Z88.2 Allergy status to sulfonamides; Z88.8 Allergy status to other drugs, medicaments and biological substances; Z79.899 Other long term (current) drug therapy; Z56.0 Unemployment, unspecified; Z59.00 Homelessness unspecified; Z60.2 Problems related to living alone
CPT/HCPCS: 36415; 80053; 80305; 80320; 81001; 81025; 85025; 87088; 99284

== ENCOUNTER 2025-05-19 23:25 | Emergency (ER) | payer SELFPAY ==
[~2025-05-19] VITALS: Ht 162.6 cm; Wt 50.0 kg
--- NOTE | 2025-05-20 02:32 | Physician Documentation ---
HPI ~ General Chief Complaint: Medication Request Stated Complaint: MULTIPLE COMPLAINTS Time Seen by MD: 02:31 Primary Medical Doctor: None History of Present Illness HPI Comments Patient presents to the emergency room with wondering if she needs to change antibiotics. She states that she was stuck by a nail in her foot about a week ago he has been taking Bactrim. At this point she does not know where exactly she was stuck with a nail that has on her left foot. No fevers Medication Reconciliation Allergies: Coded Allergies: codeine (Verified Allergy, Severe, 05/19/25) sulfamethoxazole (Verified Allergy, Unknown, 05/19/25) trimethoprim (Verified Allergy, Unknown, 05/19/25) Scheduled Bacitracin (Bacitracin), 2 GM TOP DAILY Clotrimazole (Clotrimazole 3), 1 APPLICATOR VG HS Ibuprofen (Ibuprofen), 1 TAB PO Q8H Ondansetron Hcl (Zofran), 1 TAB PO Q6H Scheduled PRN Loperamide HCl (Imodium A-D), 1 TAB PO Q4H PRN for constipation Naproxen (Naproxen), 1 TAB PO Q12H PRN for pain Tolnaftate (Tinactin), 1 APPLIC TOP Q12H PRN PRN for pain Past Medical History Past Medical History: Cellulitis, *PSYCH* Past Surgical History: noncontributory Last Menstrual Period: May 17, 2025 Alcohol Use: Other Drug Use: other Lives with: Alone Lives In: Homeless Occupation: unemployed Review of Systems ROS All review of systems negative except as per HPI Physical Exam Physical Exam Vital Signs: Temperature: 97.8, Source: Temporal, Heart Rate: 80, Respiratory Rate: 16, BP: 133/90, Pulse Oximetry: 99, Weight: 50.000 Physical Exam General: Patient is awake, alert, oriented x4 in no acute distress Head: Normocephalic and atraumatic. Eyes: Conjunctival normal. EOMI. PERRL. ENT: Mucous membranes moist. Neck: Supple, trachea is midline. Chest: Clear to auscultation bilaterally without rales, rhonchi, or wheezes. There is no accessory muscle use or retractions. Cardiac: RRR without murmurs, gallops, or rubs. Extremities: No appreciable abnormality of the foot Progress Results/Orders Results/Orders Vital Signs 05/19/25 23:33 Temp 97.8 Pulse 80 Resp 16 B/P (MAP) 133/90 Pulse Ox 99 Medical Decision Making Additional information obtaine: old records Findings Patient presents to the emergency room requesting change of antibiotics as per H PI. I did noticed that although she reports taking Bactrim this is listed as one of her allergies. I will switch her to Keflex. I do not feel emergent labs or imaging is necessary Differential Dx:Considerations: Include: Adverse circumstances, Economic, Psychosocial, Medical services unavail., Medication refill, Medication non- compliance, Other Departure Disposition: HOME / SELF CARE / HOMELESS Impression: Primary Impression: General medical exam Condition: Stable Discharge Instructions: Medicine Refill at the Emergency Department Referrals: NO PRIMARY CARE PROVIDER (PCP) Prescriptions Cephalexin*Monohydrate* (Keflex*) 500 Mg Capsule 1 CAP PO Q12H for 10 Days, #20 CAP Prov: DARRICK MENESES MD 05/20/25 Signature Scribe Signature: No scribe Attestation: The note accurately reflects work and decisions made by me.Darrick Meneses MD 05/20/25 02:37 DARRICK MENESES MD May 20, 2025 02:32
[2025-05-20] MEDS ORDERED: CEPH-585 PO (02:37)
[2025-05-20] MEDS: ibuprofen tablet 400 MG TABLET PO ONE (02:54)
[2025-05-20 02:57] VITALS: BP 136/86; PULSE 83; RESP 16; TEMP 98; O2SAT 99
== END 2025-05-20 03:00 | disposition home or self-care (01) ==
LOC: ER 23:27
DX: Z00.00 Encounter for general adult medical examination without abnormal findings (principal); Z88.5 Allergy status to narcotic agent; Z88.2 Allergy status to sulfonamides; Z88.8 Allergy status to other drugs, medicaments and biological substances; Z79.899 Other long term (current) drug therapy; Z56.0 Unemployment, unspecified; Z59.00 Homelessness unspecified; Z60.2 Problems related to living alone
CPT/HCPCS: 99283

== ENCOUNTER 2025-05-31 21:02 | Emergency (ER) | payer MEDICAID ==
[~2025-05-31] VITALS: Ht 162.6 cm; Wt 55.1 kg
[~2025-05-31 21:02] MED LIST changes: +CEPH-585 PO
[2025-05-31 21:09] VITALS: BP 121/76; PULSE 92; RESP 18; TEMP 97.7; O2SAT 100
--- NOTE | 2025-05-31 21:20 | Physician Documentation ---
History of Present Illness General Chief Complaint: See Chief Complaint Stated Complaint: INFECTION Primary Medical Doctor: None History of Present Illness Initial Comments This is a 44-year-old female who presents reporting concern for infection to her face, patient reports there is pus coming out of my face patient is reporting drainage from her eyes, ears, and other areas of her face. Medication Reconciliation Allergies: Coded Allergies: codeine (Verified Allergy, Severe, 05/19/25) sulfamethoxazole (Verified Allergy, Unknown, 05/19/25) trimethoprim (Verified Allergy, Unknown, 05/19/25) Scheduled Bacitracin (Bacitracin), 2 GM TOP DAILY Clotrimazole (Clotrimazole 3), 1 APPLICATOR VG HS Ibuprofen (Ibuprofen), 1 TAB PO Q8H Ondansetron Hcl (Zofran), 1 TAB PO Q6H Scheduled PRN Loperamide HCl (Imodium A-D), 1 TAB PO Q4H PRN for constipation Naproxen (Naproxen), 1 TAB PO Q12H PRN for pain Tolnaftate (Tinactin), 1 APPLIC TOP Q12H PRN PRN for pain Discontinued Medications Cephalexin*Monohydrate* (Keflex*), 1 CAP PO Q12H Discontinued Reason: Auto Discontinued Past Medical History Past Medical History: Cellulitis, *PSYCH* Past Surgical History: noncontributory Alcohol Use: Other Drug Use: other Lives with: Alone Lives In: Homeless Occupation: unemployed Review of Systems ROS As stated above in the HPI, otherwise all systems are reviewed and negative. Physical Exam Physical Exam Vital Signs: Temperature: 97.7, Heart Rate: 92, Respiratory Rate: 18, BP: 121/76, Pulse Oximetry: 100, Weight: 55.100 Oxygen Flow Rate: 0 Physical Exam VITALS: Reviewed and as above. GENERAL: Alert, nontoxic appearing, no apparent distress. HEENT: No facial swelling, no discharge from ears, nose, eyes, or mouth. RESPIRATORY: No increased work of breathing, no respiratory distress, speaking in full clear sentences Progress Results/Orders Results/Orders Vital Signs 05/31/25 21:09 Temp 97.7 Pulse 92 Resp 18 B/P (MAP) 121/76 Pulse Ox 100 O2 Flow Rate 0 Medical Decision Making Additional information obtaine: N/A Findings MSE performed in triage and patient returned to ED lobby by nursing staff to await available ED room Differential Diagnosis Abscess, cellulitis, delusions, methamphetamine intoxication, alcohol i ntoxication, psychiatric condition, hallucinations Departure Disposition: 07 LEFT AWOL/ELOPED Impression: Primary Impression: Delusion Referrals: NO PRIMARY CARE PROVIDER (PCP) Signature Scribe Signature: No scribe Attestation: The note accurately reflects work and decisions made by me.LUBA Shepard 06/02/25 00:20 KATERINA ARRIAGA May 31, 2025 21:20
== END 2025-05-31 23:32 | disposition left against medical advice (07) ==
LOC: ER 21:04
DX: F22 Delusional disorders (principal); Z88.5 Allergy status to narcotic agent; Z88.2 Allergy status to sulfonamides; Z88.8 Allergy status to other drugs, medicaments and biological substances; Z79.899 Other long term (current) drug therapy; Z56.0 Unemployment, unspecified; Z59.00 Homelessness unspecified; Z60.2 Problems related to living alone
CPT/HCPCS: 99282

== ENCOUNTER 2025-06-25 05:11 | Emergency (ER) | payer MEDICAID ==
[~2025-06-25] VITALS: Ht 160 cm; Wt 59.0 kg
[~2025-06-25 05:11] MED LIST changes: -CEPH-585 PO
[2025-06-25 05:17] VITALS: TEMP 98.6
[2025-06-25] MEDS ORDERED: [UNRECOGNIZED DRUG - CODE] TOP (06:27)
--- NOTE | 2025-06-25 06:27 | Physician Documentation ---
Addendum CHIEF COMPLAINT/HPI: The patient is a 44-year-old female with no significant past medical history. She is currently homeless. She presents with a burning sensation on her face. She has taken antibiotics previously without benefit. She has been exposed to the cold quite a bit recently. REVIEW OF SYSTEMS: Constitutional: Denies chills, fatigue, fever, weight gain or weight loss. HEENT: Denies hearing loss, sinus pressure or visual changes. Respiratory: Denies cough, shortness of breath or wheezing. Cardiovascular: Denies chest pain, pain while walking (claudication), edema or palpitations. Gastrointestinal: Denies abdominal pain, blood in stool, constipation, diarrhea, heartburn, loss of appetite, nausea or vomiting. Genitourinary: Denies painful urination (dysuria), excessive amount of urine (polyuria) or urinary frequency. Metabolic/Endocrine: Denies cold intolerance, heat intolerance, excessive thirst (polydipsia) or excessive hunger (polyphagia). Neurological: Denies dizziness, extremity numbness, extremity weakness, headaches, seizures or tremors. Psychiatric: Denies anxiety or depression. Integumentary: Dry face, burning sensation. Musculoskeletal: Denies back pain, joint pain, joint swelling or neck pain. Hematologic: Denies easily bleeding, easily bruises, lymphedema or issues with blood clots. Immunologic: Denies food allergies or seasonal allergies. PHYSICAL EXAMINATION: Vitals and nursing note reviewed. Constitutional: General: Patient is awake, alert, oriented x 4 in no acute distress and well appearing. Speech is clear and lucid. Appearance: Normal appearance. Patient is not ill-appearing, toxic-appearing or diaphoretic. HENT: Head: Normocephalic and atraumatic. Mouth: Mucous membranes are moist. Pharynx: Oropharynx is clear. Eyes: General: No scleral icterus. Extraocular Movements: Extraocular movements intact. Pupils: Pupils are equal, round, and reactive to light. Neck: Supple, no Kernig or Brudzinski sign. Cardiovascular: Rate and Rhythm: Normal rate and regular rhythm. Heart sounds: No murmur heard. Pulmonary: Effort: No respiratory distress. Breath sounds: No wheezing, rhonchi or rales. Abdominal: General: There is no distension. Palpations: There is no fluid wave, hepatomegaly or mass. Tenderness: There is no abdominal tenderness. There is no guarding. Musculoskeletal: General: No swelling or deformity. Skin: Coloration: Skin is not jaundiced. Findings: Her face appears dry and slightly erythematous. Neurological: Mental Status: Patient is alert. MEDICAL DECISION MAKING: This 44-year-old female presents with dry skin, especially on her face. She has taken antibiotics without benefit. I do not feel that she has cellulitis or other infection. She appears to have dry skin that will benefit by applying a moisturizer. Departure Disposition: 01 HOME / SELF CARE / HOMELESS Impression: Primary Impression: Dry skin Condition: Stable Additional Instructions: It is important to see your doctor or primary care provider. Emergency care may be incomplete without proper follow-up. Symptoms sometimes change or new symptoms might arise after you leave the emergency department. It is important that you call your doctor if you become worse in any way, or return to the emergency department. You are strongly urged to follow-up with your physician to assure complete and thorough care. Please call your doctor's office today, and informed them that you were seen in the emergency department, and that you need to be seen immediately for close follow-up. If you do not have a primary care doctor we encourage you to proactively seek a local physician for close follow-up. Consider local clinics, [facility], or local [facility]. Prior to discharge we spoke at length concerning symptoms that would merit reevaluation, but please return to the emergency department for any symptoms that are concerning to you, and we will be happy to continue your evaluation and treatment. Please note you can always return to the emergency department if you are having difficulty coordinating close follow-up. If medications were prescribed, you should fill them at your local pharmacy immediately and take only as prescribed. Bring your new medications to your doctors follow-up visit to discuss any changes that would be necessary. Please check [facility] for any results you did not receive in the Emergency Department: often we are unable to get all your tests back before you leave, and these tests need to be reviewed by your PCP and yourself. You can also call Medical Records if you are unable to access the internet to see [facility]. Return to the emergency department immediately for worsening chest pain, difficulty breathing, sweating, or other concerning emergent symptoms. Prescriptions Ens/Octin/Oct Shaheed/Tit Dwaine/Znox (Eucerin Daily Protect Face Lot) Spf 30 Lotion 1 APPLIC TOP QIDWA for 10 Days, #1 BOT Prov: SHRAVAN HERNANDEZ MD 06/25/25 SHRAVAN HERNANDEZ MD Jun 25, 2025 06:27
[2025-06-25 06:33] VITALS: BP 161/103; PULSE 65; RESP 18; O2SAT 98
== END 2025-06-25 06:43 | disposition home or self-care (01) ==
LOC: ER 05:12
DX: L85.3 Xerosis cutis (principal); Z59.00 Homelessness unspecified
CPT/HCPCS: 99283

== ENCOUNTER 2025-07-11 23:39 | Emergency (ER) | payer MEDICAID ==
[~2025-07-11] VITALS: Ht 160 cm; Wt 52.0 kg
[~2025-07-11 23:39] MED LIST changes: +[UNRECOGNIZED DRUG - CODE] TOP
[2025-07-11 23:46] VITALS: BP 132/84; PULSE 66; RESP 16; TEMP 98.9; O2SAT 100
--- NOTE | 2025-07-12 01:38 | Physician Documentation ---
HPI ~ General Chief Complaint: Medication Refill Stated Complaint: REQUESTING REFILL OF MEDICATION Time Seen by MD: 01:35 Primary Medical Doctor: None History of Present Illness HPI Comments Patient is a pleasant 45-year-old female that presents to the emergency department for evaluation for medical clearance so that she can present to the [facility]. Patient denies any concerning symptoms at this time. Patient reports she is feeling well. Patient appears well here in the emergency department. Medication Reconciliation Allergies: Coded Allergies: codeine (Verified Allergy, Severe, 06/25/25) sulfamethoxazole (Verified Allergy, Unknown, 06/25/25) trimethoprim (Verified Allergy, Unknown, 06/25/25) Scheduled Bacitracin (Bacitracin), 2 GM TOP DAILY Clotrimazole (Clotrimazole 3), 1 APPLICATOR VG HS Ens/Octin/Oct Shaheed/Tit Dwaine/Znox (Eucerin Daily Protect Face Lot), 1 APPLIC TOP QIDWA Ibuprofen (Ibuprofen), 1 TAB PO Q8H Ondansetron Hcl (Zofran), 1 TAB PO Q6H Scheduled PRN Loperamide HCl (Imodium A-D), 1 TAB PO Q4H PRN for constipation Naproxen (Naproxen), 1 TAB PO Q12H PRN for pain Tolnaftate (Tinactin), 1 APPLIC TOP Q12H PRN PRN for pain Past Medical History Past Medical History: Cellulitis, *PSYCH* Past Surgical History: noncontributory Alcohol Use: Other Drug Use: other Lives with: Alone Lives In: Homeless Occupation: unemployed Review of Systems ROS As stated above in the HPI, otherwise all systems are reviewed and negative. Physical Exam Physical Exam Vital Signs: Temperature: 98.9, Source: Temporal, Heart Rate: 66, Respiratory Rate: 16, BP: 132/84, Pulse Oximetry: 100, Weight: 52.000 Oxygen Flow Rate: 0 Physical Exam VITALS: Reviewed and as above. GENERAL: Alert, no apparent distress. HEENT: Normocephalic, atraumatic, PERRL, EOMI, dry mucosa, no erythema RESPIRATORY: Lungs clear, normal breath sounds, no respiratory distress. CHEST: No accessory muscle use, no retractions CV: Regular rate, rhythm, no edema,No: JVD GI: Soft, non-tender, bowels sounds present, no rebound, guarding, or rigidity. MUSCULOSKELETAL No deformities, no edema SKIN: Warm and dry, no rash NEURO: Oriented x4, No motor or sensory deficit PSYCH: Normal mood and affect, no agitation Progress Results/Orders Results/Orders Vital Signs 07/11/25 23:46 Temp 98.9 Pulse 66 Resp 16 B/P (MAP) 132/84 Pulse Ox 100 O2 Flow Rate 0 Medical Decision Making Additional information obtaine: other Findings Patient presents to the emergency department for evaluation for medical clearance to present to the local [facility]. Patient is medically cleared to present to the [facility] at this time. Differential Dx:Considerations: Include: Adverse circumstances, Economic, Psychosocial, Medical services unavail., Medication refill, Medication non- compliance, Other Departure Disposition: 01 HOME / SELF CARE / HOMELESS Impression: Primary Impression: General medical exam Condition: Stable Discharge Instructions: Medical Screening Exam Additional Instructions: Patient presents to the emergency department for evaluation for medical clearance to present to the local [facility]. Patient is medically cleared to present to the [facility] at this time. Referrals: NO PRIMARY CARE PROVIDER (PCP) Education Educated: Patient Educated regarding: diagnosis, treatment, need for follow up Signature Scribe Signature: A Attestation: Scribed for Emergency,Department by LUBA Palacios . 07/12/25 01:38 JOHN SOUTH Jul 12, 2025 01:38
== END 2025-07-12 02:05 | disposition home or self-care (01) ==
LOC: ER 23:41
DX: Z00.00 Encounter for general adult medical examination without abnormal findings (principal); Z76.0 Encounter for issue of repeat prescription; Z88.5 Allergy status to narcotic agent; Z88.2 Allergy status to sulfonamides; Z88.8 Allergy status to other drugs, medicaments and biological substances; Z79.899 Other long term (current) drug therapy; Z59.00 Homelessness unspecified; Z56.0 Unemployment, unspecified; Z60.2 Problems related to living alone
CPT/HCPCS: 99282